=== PATIENT | female | born 1965 | race Caucasian/White ===

== ENCOUNTER 2018-04-05 11:13 | Emergency (ER) | payer MEDICAID, SELFPAY ==
[2018-04-05 11:15] VITALS: BP 142/105; PULSE 113; RESP 18; TEMP 36.8; O2SAT 97; BMI 29.9
[2018-04-05] MEDS: Ketorolac 60 MG/2 ML Vial IM (11:46)
[2018-04-05] MEDS: Orphenadrine 60 MG/2 ML Ampul IM (11:47)
--- NOTE | 2018-04-05 12:03 | ED.VISSUMM ---
- ER Visit Summary Date of Service: 04/05/18 Chief Complaint: Back pain History of Present Illness: The patient is a 52 F with low back pain. The symptoms started 2 days ago. It was worse after lifting and doing some cleaning. Pain is in the left lower back. She has trouble getting comfortable. She is taking gabapentin for hip pain but nothing seems to help with her back. She has a history of hypertension and neuropathy. Denies any abdominal pain, masses, GI symptoms, symptoms, or CAMPUS DIRECTOR symptoms. Denies fever. Physical Examination: Blood pressure 142/105. Heart rate 113. Otherwise vitals unremarkable. Afebrile. No acute distress, but does appear uncomfortable. Head and neck grossly unremarkable. Heart tachycardic but regular. Lungs clear. Abdomen soft. Back is tender to palpation of the left lumbar paraspinal muscles. No spinal tenderness. No CVA tenderness. Straight leg raise negative. Strength, sensation, pulses all normal distally and symmetric bilaterally. Skin appears normal. Test Results: None indicated Emergency Department Course and Treatment: Patient treated with Toradol and Norflex. I believe this is myofascial pain. I believe it will require some time to recover. There is no indication for imaging or admission. Patient will be prescribed anti-inflammatories and muscle relaxers. Continue taking gabapentin. Return for any new or worsening conditions. Treatment Plan: As above Disposition: Discharged Impression: 1. Lumbar back pain This note was generated with [employer] dictation software. It may contain incorrect words, spelling, and punctuation that were not noted in review of the chart prior to signing ED Disposition - Plan for ED Patient: Chief Complaint: Back Referrals: Martin Cantu DO [Primary Care Provider] -
--- NOTE | 2018-04-05 12:06 | ED.DCSUM_ITS ---
- ER Visit Summary Date of Service: 04/05/18 Chief Complaint: Back pain History of Present Illness: The patient is a 52 F with low back pain. The symptoms started 2 days ago. It was worse after lifting and doing some cleaning. Pain is in the left lower back. She has trouble getting comfortable. She is taking gabapentin for hip pain but nothing seems to help with her back. She has a history of hypertension and neuropathy. Denies any abdominal pain, masses, GI symptoms, symptoms, or YOUTH NUTRITIONAL MONITOR symptoms. Denies fever. Physical Examination: Blood pressure 142/105. Heart rate 113. Otherwise vitals unremarkable. Afebrile. No acute distress, but does appear uncomfortable. Head and neck grossly unremarkable. Heart tachycardic but regular. Lungs clear. Abdomen soft. Back is tender to palpation of the left lumbar paraspinal muscles. No spinal tenderness. No CVA tenderness. Straight leg raise negative. Strength, sensation, pulses all normal distally and symmetric bilaterally. Skin appears normal. Test Results: None indicated Emergency Department Course and Treatment: Patient treated with Toradol and Norflex. I believe this is myofascial pain. I believe it will require some time to recover. There is no indication for imaging or admission. Patient will be prescribed anti-inflammatories and muscle relaxers. Continue taking gabapentin. Return for any new or worsening conditions. Treatment Plan: As above Disposition: Discharged Impression: 1. Lumbar back pain This note was generated with [employer] dictation software. It may contain incorrect words, spelling, and punctuation that were not noted in review of the chart prior to signing ED Disposition - Plan for ED Patient: Chief Complaint: Back Referrals: Martin Cantu DO [Primary Care Provider] -
--- NOTE | 2018-04-05 12:06 | ED.DEP ---
ED Disposition - Plan for ED Patient: Chief Complaint: Back Instructions: ED Spasm Back No Trauma Prescriptions: Ibuprofen [Motrin] 800 mg PO TID PRN PRN #20 tab PRN Reason: Pain Cyclobenzaprine [Flexeril] 10 mg PO TID PRN #20 tab PRN Reason: Muscle Spasm Referrals: Martin Cantu DO [Primary Care Provider] -
[2018-04-05 12:19] VITALS: BP 142/105; PULSE 104; RESP 17; O2SAT 98
== END 2018-04-05 12:20 | disposition home or self-care (01) ==
PROVIDERS: Emergency Provider Emergency Medicine; Family Provider Student in an Organized Health Care Education/Training Program; PCP Student in an Organized Health Care Education/Training Program
DX: M54.5 Low back pain (principal); I10 Essential (primary) hypertension; G62.9 Polyneuropathy, unspecified; Z87.891 Personal history of nicotine dependence
CPT/HCPCS: 99282

== ENCOUNTER 2018-09-22 13:54 | Emergency (ER) | payer MEDICAID, SELFPAY ==
[2018-09-22 13:55] VITALS: BP 157/102; PULSE 87; RESP 16; TEMP 36.1; O2SAT 98; BMI 27.3
[2018-09-22 15:07] LABS: Absolute Lymphocyte Count 2.34 X10^3/ul (0.83-4.51); Absolute Neutrophil Count 3.3 X10^3/uL (2.0-7.7); Basophil# 0.03 X10^3/uL; Basophil% 0.5 % (0-1); Eosinophils% 3.3 % (0-5); Hematocrit 41.7 % (37-47); Hemoglobin 13.9 g/dl (12.0-15.0); Lymphocyte # 2.34 X10^3/ul (4.0); Lymphocyte % 38.1 % (19-41); Mean Corp Hgb Conc 33.3 g/gl (32-36); Mean Corpuscular Volume 89.9 fL (81-99); Mean Platelet Vol. 11.6 fl (6.2-12.0); Monocyte# 0.28 X10^3/uL; Monocyte% 4.6 % (0-10); Neutrophil # 3.29 X10^3/uL (2.7-7.7); Neutrophil % 53.5 % (47-70); Platelet Count 179 K/mm3 (150-450); RBC Distribution Width CV 13.1 % (11.6-14.6); RBC Distribution Width SD 42.8 fl (35.1-43.9); Red Blood Count 4.64 M/mm3 (4.2-5.4); White Blood Count 6.1 K/mm3 (4.4-11.0)
[2018-09-22 15:18] LABS: Anion Gap 7 (5-15); BUN 33 mg/dL (7-18); BUN/Creat Ratio 39.7 RATIO (10-20); Calcium,Total 8.5 mg/dL (8.5-10.1); Chloride 111 mmol/L (98-107); Creatinine, Serum 0.83 mg/dL (0.55-1.02); EST Glomerular Filtration Rate 76 mL/min (>60); Est Glom Filt Rate - Afr Amer 92 mL/min (>60); Estimated Creatinine Clearance 79.07 ml/min; Glucose 88 mg/dL (74-106); Potassium 3.5 mmol/L (3.5-5.1); Sodium Level 143 mmol/L (136-145)
[2018-09-22 15:25] LABS: CPK Total, Creatine Kinase 119 U/L (26-192)
[2018-09-22 15:31] LABS: POSITIVE COUNT NO; POSITIVE DIFFERENTIAL NO; POSITIVE MORPHOLOGY NO
--- NOTE | 2018-09-22 15:49 | ED.VISSUMM ---
- ER Visit Summary Date of Service: 09/22/18 Chief Complaint: [Bilateral leg pain History of Present Illness: The patient is a 53 F [presents to the emergency department with bilateral leg pain that started last night. Patient describes a burning sensation to the anterior aspect of both thighs and lower extremities. Patient denies any numbness or tingling or weakness in extremities. She denies any trauma. She denies any back pain. She does have a history of neuropathy but is never had pain like this before. She denies any rashes. Denies any new medications. Patient currently on gabapentin and meloxicam.] Physical Examination: [HEENT-PERRLA, EOMI. Cranial nerves II through XII grossly intact. TMs clear. Mucous membranes moist. No adenopathy. Cardiovascular-regular rate and rhythm without murmur or ectopy Lungs-clear to auscultation, chest wall stable without crepitus or subcu emphysema Abdomen-normoactive bowel sounds, soft, nontender, no rebound or rigidity, no peritoneal signs. Back exam-patient has no tenderness over the lumbar spine. There is no erythema or warmth. Extremities-intact ?4, normal range of motion, normal pulses, atraumatic. Patient has mild tenderness to the anterior thighs bilaterally as well as the anterior tibial regions bilaterally. There is no erythema or warmth noted. Patient has normal femoral, popliteal, dorsal pedal, and we will see her tibial pulses. Cap refill less than 3 seconds. Normal range of motion. Normal strength.] Test Results: [CBC with differential obtained was normal. Chemistries were normal. Sed rate was 13. CPK was 110.] Emergency Department Course and Treatment: [Patient was driving so she denies any pain medicine in the emergency department.] Treatment Plan: [Patient to follow-up with her primary care physician within next 5-7 days. Patient given a prescription for [place] for pain.] Disposition: [Discharged home in stable condition] Impression: [Bilateral leg pain-etiology uncertain] This note was generated with [employer] dictation software. It may contain incorrect words, spelling, and punctuation that were not noted in review of the chart prior to signing ED Disposition - Plan for ED Patient: Chief Complaint: Lower Extremity Injury Referrals: Martin Cantu DO [Primary Care Provider] -
--- NOTE | 2018-09-22 15:53 | ED.DEP ---
ED Disposition - Plan for ED Patient: Chief Complaint: Lower Extremity Injury Prescriptions: Hydrocodone Bitart/Apap 5-325 [[place] 5MG-325MG] 1 tab PO Q4H PRN PRN 2 Days #10 tab PRN Reason: Pain Referrals: Martin Cantu DO [Primary Care Provider] - 5-7 Days Additional Instructions: Reason for your leg pain is unclear
--- NOTE | 2018-09-22 15:56 | DCINST.ED_ITS ---
ED Disposition - Plan for ED Patient: Chief Complaint: Lower Extremity Injury Prescriptions: Hydrocodone Bitart/Apap 5-325 [[place] 5MG-325MG] 1 tab PO Q4H PRN PRN 2 Days #10 tab PRN Reason: Pain Referrals: Martin Cantu DO [Primary Care Provider] - 5-7 Days Additional Instructions: Reason for your leg pain is unclear
--- NOTE | 2018-09-22 16:07 | ED.RN ---
DISCHARGE INSTRUCTIONS GIVEN TO AND REVIEWED WITH PATIENT, PATIENT DENIES QUESTIONS OR CONCERNS AND VOICES UNDERSTANDING OF DISCHARGE INSTRUCTIONS. PT AMBULATES OUT OF ROOM WITHOUT ISSUE.
[2018-09-23 07:58] LABS: Erythrocyte Sedimentation Rate 17 mm/hr (0-30)
== END 2018-09-22 16:08 | disposition home or self-care (01) ==
LOC: ED 14:51
PROVIDERS: Emergency Provider Emergency Medicine; Family Provider Student in an Organized Health Care Education/Training Program; PCP Student in an Organized Health Care Education/Training Program
DX: M79.605 Pain in left leg (principal); M79.604 Pain in right leg; Z72.0 Tobacco use
CPT/HCPCS: 36415; 80048; 82550; 85025; 85652; 99282

== ENCOUNTER 2018-11-25 13:54 | Observation (INO) | payer MEDICAID, SELFPAY ==
[2018-11-25] VITALS (11 sets, daily range): BP systolic 168–196; BP diastolic 75–133; PULSE 62–88; RESP 13–18; TEMP 36.3–37.1; O2SAT 95–100; BMI 29.3; BMI 28.6; BMI 28.7
--- NOTE | 2018-11-25 13:56 | NURSING ---
NO OLD EKG
--- NOTE | 2018-11-25 15:18 | EKG12_ITS ---
Test Reason : HTN/RHYTHM CHANGES Blood Pressure : / mmHG Vent. Rate : 066 BPM Atrial Rate : 066 BPM P-R Int : 196 ms QRS Dur : 094 ms QT Int : 412 ms P-R-T Axes : 065 063 080 degrees QTc Int : 431 ms Normal sinus rhythm Normal ECG Confirmed by FAVIAN PATEL, JAMIA ([id number]), staff editor NHAN PAZ ([id number]) on 11/28/2018 1:51:14 PM Referred By: TANYA Confirmed By:JAMIA BALLESTEROS MD
--- NOTE | 2018-11-25 15:18 | CT_ITS ---
STUDY: CT BRAIN WITHOUT CONTRAST REASON FOR EXAM: Female, 53 years old. Left arm weakness RADIATION DOSAGE (If Supplied By Facility): CTDIvol = ( 44.99 ) mGy, DLP = ( 745.49 ) mGycm TECHNIQUE: Transaxial CT imaging of the brain was performed without administration of intravenous contrast material. Individualized dose optimization techniques were used for this CT. COMPARISON: No relevant priors. FINDINGS: Normal soft tissue structures. Normal calvarium. Normal size ventricles and extra-axial spaces for the patient's age. There are mild areas of decreased attenuation within the white matter tracts of the supratentorial brain, consistent with microvascular disease changes. Normal basal ganglia and thalami. Normal brainstem. Normal cerebellum. There is no intracranial hemorrhage. There are no findings of an acute ischemic infarction. There is mucosal thickening in the sphenoid sinus. CT/Brain/Head without Contrast IMPRESSION: Chronic involutional changes of the brain. No hemorrhage. Electronically Signed: Larry Madera MD at 15:57 EDT , Service support ,
--- NOTE | 2018-11-25 15:19 | ED.VISSUMM ---
- ER Visit Summary Date of Service: 11/25/18 Chief Complaint: Blood pressure History of Present Illness: The patient is a 53 F history of hypertension and bilateral neuropathy of the feet. Patient was in her primary care office today for follow-up for elevated blood pressure. Pressure was high and she was sent in the ER. States she has had some intermittent headaches recently. One time she had stuttering speech. She denies any history of prior stroke or TIA. She is not on blood thinners. She denies any recent head trauma. Physical Examination: Blood pressure 160/133. Otherwise vital signs stable and afebrile. HEENT exam left-sided facial droop. Slow deliberate speech. Pupils round reactive light. No signs of trauma to her face or scalp. Neck nontender. Lungs clear to auscultation bilaterally. Heart regular rhythm rate about 65 no murmur. Chest wall nontender. Abdomen soft nontender. Patient is moving all 4 extremities. She seems to display weakness of her right arm and leg. The tester food products strength of the right hand is definitely significantly less than the left and she is right-hand dominant. No edema. Neurologically she has slightly slurred speech. Left facial droop. And weakness to her right arm and leg specifically tester food products strength and lifting her right leg. NIH score equals 4. Test Results: See normal. White count of 6 hemoglobin 14. Chemistries normal normal creatinine and gap. Troponin normal. EKG sinus rhythm rate of 66 no acute abnormality. Chest x-ray portable one view shows no acute abnormality read both myself and radiologist. CT of the brain shows chronic changes no acute process. Emergency Department Course and Treatment: Patient undergo a stroke workup. Repeat exam patient is doing well. Unchanged. She still has mildly slurred speech, left facial droop, right hand weakness compared to the left and right leg weakness compared to the right. Her NIH at most would be a 4. Some of this has been going on like the right hand weakness during the patient's. She is never had a workup. This could be secondary to a problem with her neck or pinched nerve. However that would explain the left facial droop and no weakness in the right leg. Treatment Plan: Speak to the hospitalist about admission. She does not meet any TPA criteria. Her current blood pressure is 179/88 at approximately 1628 PM Disposition: Admission Impression: Acute on chronic hypertension Right-sided weakness with left facial droop This note was generated with [employer] dictation software. It may contain incorrect words, spelling, and punctuation that were not noted in review of the chart prior to signing ED Disposition - Plan for ED Patient: Referrals: Martin Cantu DO [Primary Care Provider] -
--- NOTE | 2018-11-25 15:22 | ED.DCSUM_ITS ---
- ER Visit Summary Date of Service: 11/25/18 Chief Complaint: Blood pressure History of Present Illness: The patient is a 53 F history of hypertension and bilateral neuropathy of the feet. Patient was in her primary care office today for follow-up for elevated blood pressure. Pressure was high and she was sent in the ER. States she has had some intermittent headaches recently. One time she had stuttering speech. She denies any history of prior stroke or TIA. She is not on blood thinners. She denies any recent head trauma. Physical Examination: Blood pressure 160/133. Otherwise vital signs stable and afebrile. HEENT exam left-sided facial droop. Slow deliberate speech. Pupils round reactive light. No signs of trauma to her face or scalp. Neck nontender. Lungs clear to auscultation bilaterally. Heart regular rhythm rate about 65 no murmur. Chest wall nontender. Abdomen soft nontender. Patient is moving all 4 extremities. She seems to display weakness of her right arm and leg. The reagent tender strength of the right hand is definitely significantly less than the left and she is right-hand dominant. No edema. Neurologically she has slightly slurred speech. Left facial droop. And weakness to her right arm and leg specifically reagent tender strength and lifting her right leg. NIH score equals 4. Test Results: See normal. White count of 6 hemoglobin 14. Chemistries normal normal creatinine and gap. Troponin normal. EKG sinus rhythm rate of 66 no acute abnormality. Chest x-ray portable one view shows no acute abnormality read both myself and radiologist. CT of the brain shows chronic changes no acute process. Emergency Department Course and Treatment: Patient undergo a stroke workup. Repeat exam patient is doing well. Unchanged. She still has mildly slurred speech, left facial droop, right hand weakness compared to the left and right leg weakness compared to the right. Her NIH at most would be a 4. Some of this has been going on like the right hand weakness during the patient's. She is never had a workup. This could be secondary to a problem with her neck or pinched nerve. However that would explain the left facial droop and no weakness in the right leg. Treatment Plan: Speak to the hospitalist about admission. She does not meet any TPA criteria. Her current blood pressure is 179/88 at approximately 1628 PM Disposition: Admission Impression: Acute on chronic hypertension Right-sided weakness with left facial droop This note was generated with [employer] dictation software. It may contain incorrect words, spelling, and punctuation that were not noted in review of the chart prior to signing ED Disposition - Plan for ED Patient: Referrals: Martin Cantu DO [Primary Care Provider] -
--- NOTE | 2018-11-25 15:35 | RAD_ITS ---
STUDY: X-RAY CHEST REASON FOR EXAM: Female, 53 years old. CVA workup. TECHNIQUE: Single AP portable view of the chest. COMPARISON: None. FINDINGS: The lungs are clear and expanded. There is no demonstrated pleural abnormality. Normal size heart. Normal mediastinum and devon. Normal visualized pulmonary arteries. Normal visualized aortic arch and descending thoracic aorta. Normal visualized thoracic spine. Normal visualized ribs, clavicles, and shoulders. There is no demonstrated abnormality of the visualized soft tissue structures of the upper abdomen. RAD/Chest 1 View IMPRESSION: Normal x-ray examination of the chest. Electronically Signed: Morenita Cesar MD at 16:00 EDT , Service support ,
[2018-11-25 15:41] LABS: Bedside Glucose 86 mg/dL (70-110)
[2018-11-25 15:47] LABS: Absolute Lymphocyte Count 2.56 X10^3/ul (0.83-4.51); Absolute Neutrophil Count 3.5 X10^3/uL (2.0-7.7); Basophil# 0.04 X10^3/uL; Basophil% 0.6 % (0-1); Eosinophils% 2.9 % (0-5); Hematocrit 42.7 % (37-47); Hemoglobin 14.5 g/dl (12.0-15.0); Lymphocyte # 2.56 X10^3/ul (4.0); Lymphocyte % 36.9 % (19-41); Mean Corpuscular Hgb 30.2 pg (27.0-32.0); Mean Platelet Vol. 12.5 fl (6.2-12.0); Monocyte# 0.64 X10^3/uL; Monocyte% 9.2 % (0-10); Neutrophil # 3.48 X10^3/uL (2.7-7.7); Neutrophil % 50.3 % (47-70); POSITIVE COUNT NO; POSITIVE DIFFERENTIAL NO; POSITIVE MORPHOLOGY NO; Platelet Count 238 K/mm3 (150-450); RBC Distribution Width CV 13.3 % (11.6-14.6); RBC Distribution Width SD 43.1 fl (35.1-43.9); White Blood Count 6.9 K/mm3 (4.4-11.0)
[2018-11-25 15:59] LABS: Anion Gap 4 (5-15); BUN 28 mg/dL (7-18); BUN/Creat Ratio 27.2 RATIO (10-20); Calcium,Total 8.9 mg/dL (8.5-10.1); Chloride 108 mmol/L (98-107); Creatinine, Serum 1.03 mg/dL (0.55-1.02); EST Glomerular Filtration Rate 59 mL/min (>60); Est Glom Filt Rate - Afr Amer 72 mL/min (>60); Estimated Creatinine Clearance 63.72 ml/min; Glucose 89 mg/dL (74-106); Potassium 4.5 mmol/L (3.5-5.1); Sodium Level 139 mmol/L (136-145)
[2018-11-25 16:45] LABS: Partial Thromboplast Time 43.5 Seconds (24.1-36.2)
--- NOTE | 2018-11-25 17:03 | PCM.HP.STD ---
Problem List (1) CVA (cerebral vascular accident) Status: Acute Qualifiers: CVA mechanism: unspecified Qualified Code(s): I63.9 - Cerebral infarction, unspecified (2) Hypertensive urgency Status: Acute History of Present Illness Date of Admission: 11/25/18 Chief Complaint: right sided weakness. The patient is a 53 year old F presents with a few day history of right-sided weakness. Presented to her PCPs office and had very high blood pressures instructed to the emergency room. Patient had a CAT scan was unremarkable but was noted to have right-sided weakness as well as left facial droop. The hospitalist service was contacted for patient for further stroke workup. Patient is never had a stroke before. Patient does complain of some pain in her right upper extremity and some paresthesias in her fingers. [] Past Medical History Medical History: Medical History (Last Updated 11/25/18 @ 17:04 by Mikel Rasheed DO) HTN (hypertension) I10 Allergies Latex, Natural Rubber Allergy (Verified 11/25/18 14:01) Rash Home Medications: Ambulatory Orders Medication Instructions Recorded Metoprolol Tartrate [Lopressor 75 mg PO BID 03/02/16 (Beta Felicity)] Cetirizine HCl [Zyrtec] 10 mg PO DAILY 11/25/18 Gabapentin 600 mg PO TID 11/25/18 Losartan Potassium [Cozaar] 50 mg PO BID 11/25/18 Meloxicam 15 mg PO DAILY 11/25/18 Nystatin/Triamcin Cream [Mycolog] 1 applic TOPICAL BID 11/25/18 Venlafaxine HCl [Effexor Xr] 75 mg PO DAILY 11/25/18 Smoking Status: Heavy Smoker (>10/day) Tobacco Use: Cigarettes Alcohol: None Drugs: None - *Family History Maternal Family History: Family History (Last Updated 11/25/18 @ 17:04 by Mikel Rasheed DO) Other CVA (cerebral vascular accident) Review of Systems Constitutional: Denies: Anorexia, Chills, Fever, Night Sweats Eyes: Reports: - - glasses. Denies: Blurred vision, Double vision HEENT: Reports: Head Aches. Denies: Sinus Congestion, Sinus Drainage Cardiovascular: Reports: Palpitations. Denies: Chest Pain Respiratory: Denies: Cough, Shortness of breath at rest, Sputum production Gastrointestinal: Denies: Abdominal Pain, Nausea, Vomiting Genitourinary: Denies: Dysuria Musculoskeletal: Reports: Arm Pain. Denies: Leg Pain Skin: Denies: Rash, Wounds Neurological: Reports: Balance problems, Numbness, Tingling. Denies: Blurred vision, Double vision Psychiatric: Denies: Anxiety, Depression Endocrine: Denies: Change in Body Habitus, Heat/ Cold Intolerance Hematologic/ Lymphatic: Denies: Easy Bruising, Easy Bleeding, Hx of blood clot Comment: A 10 point review of systems were negative except as mentioned in the history of present illness and the other review of systems. VTE Information - Inpt Only VTE Present on Admission: No VTE Pharm Prophylaxis ordered?: Yes Patient Problems: Active and Suspected Problems CVA (cerebral vascular accident) (Acute) Hypertensive urgency (Acute) - Physical Exam General: Alert, Cooperative, No apparent distress HEENT: Atraumatic, PERRLA, EOMI, Normocephalic Oral: Moist Mucosa, No Gingival or Mucosal Lesions/ Ulcerations Neck: No Nodes, Thyroid Normal Size and Texture Lungs: Clear to auscultation, Normal air movement, No rhonchi, No wheeze Cardiovascular: Regular rate, Regular Rhythm, Normal S1, Normal S2, No murmurs Abdomen: Bowel Sounds Present, Soft, Non Tender, Non-Distended, No Hepato-splenomegaly Extremities: No edema, No Calf Tenderness Skin: No rashes, No breakdown Musculoskeletal: No Tenderness to Palpation of Joints or Extremities, No Muscle Wasting Neurological: Cranial nerves II-XII grossly intact - Set for a slight left facial droop, Motor Exam 5/5 strength throughout - Except 4 out of 5 in the right upper and right lower extremity Psych/Mental Status: Normal Affect, Appropriate Vital Signs Temp Pulse Resp BP Pulse Ox 36.3 C L 68 14 179/96 H 98 11/25/18 13:55 11/25/18 16:30 11/25/18 16:30 11/25/18 16:30 11/25/18 16:30 Oxygen Delivery Method Room Air Weight: 87.543 kg Body Mass Index (BMI) 29.3 Finger Stick Blood Glucose 86 Laboratory Tests Past 24 Hrs 11/25/18 11/25/18 11/25/18 14:04 14:04 14:04 WBC 6.9 RBC 4.80 Hgb 14.5 Hct 42.7 MCV 89.0 MCH 30.2 MCHC 34.0 RDW 13.3 RDW Differential 43.1 Plt Count 238 MPV 12.5 H Immature Gran % (Auto) 0.100 Neut % (Auto) 50.3 Lymph % (Auto) 36.9 [place] % (Auto) 9.2 Eos % (Auto) 2.9 Baso % (Auto) 0.6 Absolute Neuts (auto) 3.5 Absolute Lymphs (auto) 2.56 Total Counted Not Reportable PT Cancelled INR Cancelled APTT Cancelled Sodium 139 Potassium 4.5 Chloride 108 H Carbon Dioxide 27.0 Anion Gap 4 L BUN 28 H Creatinine 1.03 H Estim Creat Clear Calc 63.72 Est GFR (MDRD) Af Amer 72 Est GFR (MDRD) Non-Af 59 L BUN/Creatinine Ratio 27.2 H Glucose 89 Calcium 8.9 Troponin I < 0.015 11/25/18 15:42 WBC RBC Hgb Hct MCV MCH MCHC RDW RDW Differential Plt Count MPV Immature Gran % (Auto) Neut % (Auto) Lymph % (Auto) [place] % (Auto) Eos % (Auto) Baso % (Auto) Absolute Neuts (auto) Absolute Lymphs (auto) Total Counted PT 13.0 INR 1.0 APTT 43.5 H Sodium Potassium Chloride Carbon Dioxide Anion Gap BUN Creatinine Estim Creat Clear Calc Est GFR (MDRD) Af Amer Est GFR (MDRD) Non-Af BUN/Creatinine Ratio Glucose Calcium Troponin I POC Glucose 11/25/18 15:23 POC Glucose 86 EKG reviewed and showed normal sinus rhythm, LVH and inferior Q waves. Clinical Impression(s) from Imaging Studies Brain CT 11/25/18 15:18 IMPRESSION: Chronic involutional changes of the brain. No hemorrhage. Electronically Signed: Larry Madera MD at 15:57 EDT , Service support , Chest X-Ray 11/25/18 15:35 IMPRESSION: Normal x-ray examination of the chest. Electronically Signed: Morenita Cesar MD at 16:00 EDT , Service support , Assessment/Plan All Active Problems CVA (cerebral vascular accident) (Acute) Hypertensive urgency (Acute) 1. Suspected stroke Presentation is atypical patient is having right upper and lower extremity weakness as well as left facial droop Patient does have risk factors in regards to her hypertension as well as tobacco use Patient will undergo a stroke workup, with an MRI of the brain, MRA of the head and neck, echocardiogram, physical and occupational therapy and neurology consultation Start patient on aspirin and high intensity statin Not a candidate for TPA as symptoms began days prior 2. Hypertensive urgency Improved As needed hydralazine 3. DVT prophylaxis with Lovenox Code Visit Inpatient E&M: 44571 Init Hosp L3
--- NOTE | 2018-11-25 17:08 | HP.PCM_ITS ---
Problem List (1) CVA (cerebral vascular accident) Status: Acute Qualifiers: CVA mechanism: unspecified Qualified Code(s): I63.9 - Cerebral infarction, unspecified (2) Hypertensive urgency Status: Acute History of Present Illness Date of Admission: 11/25/18 Chief Complaint: right sided weakness. The patient is a 53 year old F presents with a few day history of right-sided weakness. Presented to her PCPs office and had very high blood pressures instructed to the emergency room. Patient had a CAT scan was unremarkable but was noted to have right-sided weakness as well as left facial droop. The hospitalist service was contacted for patient for further stroke workup. Patient is never had a stroke before. Patient does complain of some pain in her right upper extremity and some paresthesias in her fingers. [] Past Medical History Medical History: Medical History (Last Updated 11/25/18 @ 17:04 by Mikel Rasheed DO) HTN (hypertension) I10 Allergies Latex, Natural Rubber Allergy (Verified 11/25/18 14:01) Rash Home Medications: Ambulatory Orders Medication Instructions Recorded Metoprolol Tartrate [Lopressor 75 mg PO BID 03/02/16 (Beta Felicity)] Cetirizine HCl [Zyrtec] 10 mg PO DAILY 11/25/18 Gabapentin 600 mg PO TID 11/25/18 Losartan Potassium [Cozaar] 50 mg PO BID 11/25/18 Meloxicam 15 mg PO DAILY 11/25/18 Nystatin/Triamcin Cream [Mycolog] 1 applic TOPICAL BID 11/25/18 Venlafaxine HCl [Effexor Xr] 75 mg PO DAILY 11/25/18 Smoking Status: Heavy Smoker (>10/day) Tobacco Use: Cigarettes Alcohol: None Drugs: None - *Family History Maternal Family History: Family History (Last Updated 11/25/18 @ 17:04 by Mikel Rasheed DO) Other CVA (cerebral vascular accident) Review of Systems Constitutional: Denies: Anorexia, Chills, Fever, Night Sweats Eyes: Reports: - - glasses. Denies: Blurred vision, Double vision HEENT: Reports: Head Aches. Denies: Sinus Congestion, Sinus Drainage Cardiovascular: Reports: Palpitations. Denies: Chest Pain Respiratory: Denies: Cough, Shortness of breath at rest, Sputum production Gastrointestinal: Denies: Abdominal Pain, Nausea, Vomiting Genitourinary: Denies: Dysuria Musculoskeletal: Reports: Arm Pain. Denies: Leg Pain Skin: Denies: Rash, Wounds Neurological: Reports: Balance problems, Numbness, Tingling. Denies: Blurred vision, Double vision Psychiatric: Denies: Anxiety, Depression Endocrine: Denies: Change in Body Habitus, Heat/ Cold Intolerance Hematologic/ Lymphatic: Denies: Easy Bruising, Easy Bleeding, Hx of blood clot Comment: A 10 point review of systems were negative except as mentioned in the history of present illness and the other review of systems. VTE Information - Inpt Only VTE Present on Admission: No VTE Pharm Prophylaxis ordered?: Yes Patient Problems: Active and Suspected Problems CVA (cerebral vascular accident) (Acute) Hypertensive urgency (Acute) - Physical Exam General: Alert, Cooperative, No apparent distress HEENT: Atraumatic, PERRLA, EOMI, Normocephalic Oral: Moist Mucosa, No Gingival or Mucosal Lesions/ Ulcerations Neck: No Nodes, Thyroid Normal Size and Texture Lungs: Clear to auscultation, Normal air movement, No rhonchi, No wheeze Cardiovascular: Regular rate, Regular Rhythm, Normal S1, Normal S2, No murmurs Abdomen: Bowel Sounds Present, Soft, Non Tender, Non-Distended, No Hepato- splenomegaly Extremities: No edema, No Calf Tenderness Skin: No rashes, No breakdown Musculoskeletal: No Tenderness to Palpation of Joints or Extremities, No Muscle Wasting Neurological: Cranial nerves II-XII grossly intact - Set for a slight left facial droop, Motor Exam 5/5 strength throughout - Except 4 out of 5 in the right upper and right lower extremity Psych/Mental Status: Normal Affect, Appropriate Vital Signs Temp Pulse Resp BP Pulse Ox 36.3 C L 68 14 179/96 H 98 11/25/18 13:55 11/25/18 16:30 11/25/18 16:30 11/25/18 16:30 11/25/18 16:30 Oxygen Delivery Method Room Air Weight: 87.543 kg Body Mass Index (BMI) 29.3 Finger Stick Blood Glucose 86 Laboratory Tests Past 24 Hrs 11/25/18 11/25/18 11/25/18 14:04 14:04 14:04 WBC 6.9 RBC 4.80 Hgb 14.5 Hct 42.7 MCV 89.0 MCH 30.2 MCHC 34.0 RDW 13.3 RDW Differential 43.1 Plt Count 238 MPV 12.5 H Immature Gran % (Auto) 0.100 Neut % (Auto) 50.3 Lymph % (Auto) 36.9 [place] % (Auto) 9.2 Eos % (Auto) 2.9 Baso % (Auto) 0.6 Absolute Neuts (auto) 3.5 Absolute Lymphs (auto) 2.56 Total Counted Not Reportable PT Cancelled INR Cancelled APTT Cancelled Sodium 139 Potassium 4.5 Chloride 108 H Carbon Dioxide 27.0 Anion Gap 4 L BUN 28 H Creatinine 1.03 H Estim Creat Clear Calc 63.72 Est GFR (MDRD) Af Amer 72 Est GFR (MDRD) Non-Af 59 L BUN/Creatinine Ratio 27.2 H Glucose 89 Calcium 8.9 Troponin I < 0.015 11/25/18 15:42 WBC RBC Hgb Hct MCV MCH MCHC RDW RDW Differential Plt Count MPV Immature Gran % (Auto) Neut % (Auto) Lymph % (Auto) [place] % (Auto) Eos % (Auto) Baso % (Auto) Absolute Neuts (auto) Absolute Lymphs (auto) Total Counted PT 13.0 INR 1.0 APTT 43.5 H Sodium Potassium Chloride Carbon Dioxide Anion Gap BUN Creatinine Estim Creat Clear Calc Est GFR (MDRD) Af Amer Est GFR (MDRD) Non-Af BUN/Creatinine Ratio Glucose Calcium Troponin I POC Glucose 11/25/18 15:23 POC Glucose 86 EKG reviewed and showed normal sinus rhythm, LVH and inferior Q waves. Clinical Impression(s) from Imaging Studies Brain CT 11/25/18 15:18 IMPRESSION: Chronic involutional changes of the brain. No hemorrhage. Electronically Signed: Larry Madera MD at 15:57 EDT , Service support , Chest X-Ray 11/25/18 15:35 IMPRESSION: Normal x-ray examination of the chest. Electronically Signed: Morenita Cesar MD at 16:00 EDT , Service support , Assessment/Plan All Active Problems CVA (cerebral vascular accident) (Acute) Hypertensive urgency (Acute) 1. Suspected stroke * Presentation is atypical patient is having right upper and lower extremity [place] as well as left facial droop * Patient does have risk factors in regards to her hypertension as well as tobacco use * Patient will undergo a stroke workup, with an MRI of the brain, MRA of the hea d and neck, echocardiogram, physical and occupational therapy and neurology consultation * Start patient on aspirin and high intensity statin * Not a candidate for TPA as symptoms began days prior 2. Hypertensive urgency * Improved * As needed hydralazine 3. DVT prophylaxis with Lovenox Code Visit Inpatient E&M: 06613 Init Hosp L3
--- NOTE | 2018-11-25 17:22 | MRI_ITS ---
STUDY: MRA OF THE HEAD WITHOUT CONTRAST REASON FOR EXAM: Female, 53 years old. Pt has N/T RIGHT arm, H/A, HTN, generalized weakness TECHNIQUE: 3-D [id number] (TOF) imaging was performed with MIPs. The study was performed unenhanced. COMPARISON: None. FINDINGS: Normal bilateral petrous carotid arteries. Normal right cavernous carotid artery with a normal supraclinoid bifurcation. Normal left cavernous carotid artery with a normal supraclinoid bifurcation. Normal right A1 segments of the anterior cerebral artery. Normal left A1 segments of the anterior cerebral artery. Normal intact anterior communicating artery (ACOM). Normal bilateral A2 segments of the anterior cerebral arteries. Normal right M1 and M2 segments of the middle cerebral arteries, with a normal M1 bifurcation. Normal left M1 and M2 segments of the middle cerebral arteries, with a normal M1 bifurcation. There is a persistent origin of the right posterior cerebral artery with absence of the P1 segment of the right posterior cerebral artery. There is a persistent origin of the left posterior cerebral artery with absence of the P1 segment of the left posterior cerebral artery. Normal bilateral vertebral arteries. Normal basilar artery with a normal basilar bifurcation. The visualized bilateral superior cerebellar (SCA) arteries are normal. Normal bilateral P1, P2 and visualized P3 segments of the posterior cerebral arteries. There is no demonstrated aneurysm of the [place]. There is no major vessel occlusion or hemodynamically significant stenosis. There is no demonstrated abnormality of the visualized brain. MRI/MRA Head ONLY without Contrast IMPRESSION: Normal MRA of the head Electronically Signed: Crispin Arteaga, at 21:50 EDT Tel , Service support ,
--- NOTE | 2018-11-25 17:22 | MRI_ITS ---
STUDY: MRI BRAIN WITH AND WITHOUT CONTRAST REASON FOR EXAM: Female, 53 years old. Numbness and tingling in the right arm with headache. Patient has generalized weakness. TECHNIQUE: Standardized multiplanar fat and water weighted pulse sequences were obtained. 18 IV Dotarem was administered for the contrast portion of the examination. Multiple images are limited by patient motion. COMPARISON: CT of the head dated November 25, 2018. FINDINGS: There is mild cerebral atrophy with widening of the extra-axial spaces and ventricular dilatation. There are a limited number of small white matter hyperintensities, distributed throughout the deep white matter tracts of the cerebral hemispheres, consistent with mild chronic white matter ischemic changes. There is no evidence for recent intracranial ischemia or other cause of cytotoxic edema on diffusion weighted imaging (DWI). Normal T2* images of the brain without demonstrated susceptibility artifact. There is no demonstrated hemosiderin stain. Normal bilateral basal ganglia. Normal thalami. There is no extra-axial fluid accumulation. Normal flow voids within the major intracranial circulation suggesting patency by spin echo criteria. Normal venous enhancement. There is no enhancing intra-axial or extra-axial abnormality. Normal sella turcica, pituitary gland, infundibular stalk, optic chiasm and hypothalamus. Normal tectal plate and pineal gland. Normal midbrain, shabbir and medulla. Normal cerebellum. There are large basal cisterns. Normal bilateral temporal bones. Normal bilateral internal auditory canals. No demonstrated orbital abnormality, within the constraints of a routine brain study. There is a small mucous retention cyst left maxillary sinus. There is mild mucoperiosteal thickening in the ethmoid sinuses. There is mild deviation of nasal septum towards the left. Normal calvarium and skull base. Normal visualized soft tissue structures. Normal visualized upper cervical spine. MRI/Brain W/WO Contrast IMPRESSION: 1. Involutional changes of the brain, as described above. 2. No MR evidence for acute infarct. Electronically Signed: Melinda Vann MD at 10:13 EDT , Service support ,
--- NOTE | 2018-11-25 17:22 | ECHOD_ITS ---
Reason For Study: TIA/CVA Procedure This was a 2D Doppler, Color Flow transthoracic echocardiogram. The exam was of adequate technical quality. Exam performed portable in patient room. Left Ventricle Normal LV size. Left ventricular systolic function is normal. The estimated ejection fraction is 65 %. Diastolic function is indeterminate. No regional wall motion abnormalities noted. Right Ventricle Normal RV size. Normal systolic function. Atria Normal left atrium. Normal right atrium. Aneurysmal atrial septum. No doppler evidence for ASD. Bubble contrast study negative for right to left interatrial shunt. Mitral Valve There is no mitral annular calcification. Normal mitral valve. Trivial mitral valve insufficiency. Tricuspid Valve Normal tricuspid valve. Trivial tricuspid valve insufficiency. Right ventricular systolic pressure estimated to be 22 mmHg. Aortic Valve Trisinus/trileaflet aortic valve. Normal aortic valve. Pulmonic Valve The pulmonic valve is not well visualized. Great Vessels Normal sized aortic root. Pericardium/Pleural No pericardial effusion. Medication Performed a rapid injection of agitated mix of 9 cc saline and 1cc air to assess for atrial septal defect. MMode/2D Measurements & Calculations LVIDd: 3.5 cm IVSd: 1.2 cm Ao root diam: 2.5 cm LVIDs: 2.4 cm LVPWd: 1.4 cm RVDd: 3.5 cm FS: 32.8 % LAV(MOD-bp): 46.0 ml LVAd ap4: 20.5 cm2 SV(MOD-sp4): 33.5 ml LAV(MOD-bp) Indexed: 23.4 ml/m2 EDV(MOD-sp4): 48.5 ml LAV(MOD-sp2): 50.5 ml EDV(sp4-el): 47.8 ml LAV(MOD-sp4): 42.2 ml LVAs ap4: 10.2 cm2 ESV(MOD-sp4): 15.1 ml ESV(sp4-el): 14.5 ml EF(MOD-sp4): 69.0 % EF(sp4-el): 69.7 % SV(sp4-el): 33.3 ml LA A4 area: 15.9 cm2 LA dimension(2D): 3.5 cm RA A4 area: 11.1 cm2 Doppler Measurements & Calculations MV E max dexter: 85.2 cm/sec Lat Peak E' Dexter: 7.1 cm/sec Med Peak E' Dexter: 5.2 cm/sec MV A max dexter: 84.1 cm/sec E/E' lat: 12.0 E/E' med: 16.5 MV E/A: 1.0 Ao V2 max: 117.8 cm/sec LV V1 max: 103.5 cm/sec PA V2 max: 70.1 cm/sec Ao max P.5 mmHg LV V1 max P.3 mmHg Ao V2 mean: 78.4 cm/sec Ao mean P.7 mmHg Ao V2 VTI: 25.9 cm TR max dexter: 217.8 cm/sec TR max P.0 mmHg Interpretation Summary Left ventricular systolic function is normal. The estimated ejection fraction is 65 %. Aneurysmal atrial septum. Trivial mitral valve insufficiency. Trivial tricuspid valve insufficiency. Right ventricular systolic pressure estimated to be 22 mmHg. Diastolic function is indeterminate. Bubble contrast study negative for right to left interatrial shunt. Ordering Physician: Mikel Rasheed Referring Physician: Maritn Kang Performed By: Maddie Amin, MIKAELA, RVT
--- NOTE | 2018-11-25 17:22 | MRI_ITS ---
STUDY: MRA NECK WITH AND WITHOUT CONTRAST REASON FOR EXAM: Female, 53 years old. N/T RIGHT arm, H/A, HTN, generalized weakness TECHNIQUE: 3-D [id number]-[id number] (TOF) imaging was performed in an 1.5 T MRI scanner. 18 IV Dotarem was administered for the contrast enhanced images. COMPARISON: None. FINDINGS: RIGHT CAROTID ARTERIES: Normal right common carotid artery (CCA). Normal right common carotid bulb. Normal origin of the right internal carotid (ICA) artery without a hemodynamically significant stenosis. Normal visualized cervical portion of the right internal carotid artery. Normal origin of the right external carotid artery (ECA). LEFT CAROTID ARTERIES: Normal left common carotid artery (CCA). Normal left common carotid bulb. Normal origin of the left internal carotid (ICA) artery without a hemodynamically significant stenosis. Normal visualized cervical portion of the left internal carotid artery. Normal origin of the left external carotid artery (ECA). VERTEBRAL ARTERIES: There is antegrade flow within the bilateral vertebral arteries with a small left vertebral artery, and a dominant right vertebral artery. MRI/MRA Neck WITH and W/O Contrast IMPRESSION: Normal bilateral cervical carotid and vertebral arteries. Electronically Signed: Crispin Arteaga, at 23:52 EDT Tel , Service support ,
[2018-11-25] MEDS: Acetaminophen 325 MG Tablet 650 MG PO (18:11)
[2018-11-25] MEDS: Aspirin 325 MG Tablet PO (18:11)
[2018-11-25] MEDS: Losartan Potassium 50 MG Tablet PO (22:09)
[2018-11-25] MEDS: Atorvastatin Calcium 80 MG Tablet PO (22:09)
[2018-11-25] MEDS: Gabapentin 600 MG Tablet PO (22:09)
[2018-11-25] MEDS: Nystatin/Triamcin Cream Tube 1 APPLIC TOPICAL (22:09)
[2018-11-25] MEDS: Metoprolol Tartrate 50 MG Tablet 75 MG PO (22:10)
[2018-11-26] VITALS (10 sets, daily range): BP systolic 136–177; BP diastolic 75–85; PULSE 54–69; RESP 12–18; TEMP 36.2–36.8; O2SAT 97–99; BMI 28.6
[2018-11-26] MEDS: Gabapentin 600 MG Tablet PO ×2 (06:07→13:42)
[2018-11-26 06:15] LABS: Cholesterol 233 mg/dL (200); High Density Lipoprotein 40 mg/dL; Triglycerides 171 mg/dL; Very Low Density Lipoprotein 34 mg/dL (5-40)
[2018-11-26] MEDS: Loratadine 10 MG Tablet PO (09:14)
[2018-11-26] MEDS: Nystatin/Triamcin Cream Tube 1 APPLIC TOPICAL (09:14)
[2018-11-26] MEDS: Losartan Potassium 50 MG Tablet PO (09:14)
[2018-11-26] MEDS: Aspirin 81 MG TAB.CHEW PO (09:14)
[2018-11-26] MEDS: Venlafaxine XR 75 MG Capsule PO (09:14)
[2018-11-26] MEDS: Metoprolol Tartrate 50 MG Tablet 75 MG PO (09:15)
--- NOTE | 2018-11-26 10:17 | NURSING ---
Student nurse charting reviewed.
[2018-11-26 10:46] LABS: Magnesium 2.2 mg/dL (1.6-2.6)
[2018-11-26 10:53] LABS: Hemoglobin A1c 5.5 % (4.2-6.3)
--- NOTE | 2018-11-26 11:24 | MRI_ITS ---
STUDY: MRI THORACIC SPINE WITHOUT CONTRAST REASON FOR EXAM: Female, 53 years old. Cord compression. Pain in neck and back with numbness in right arm. General weakness. TECHNIQUE: Standardized fat and water weighted pulse sequences were obtained in the sagittal and axial planes. COMPARISON: None. FINDINGS: Normal kyphosis of the thoracic spine. There is no substantial scoliosis. T1-2, T2-3, T3-4, T4-5, T5-6, T6-7, T7-8, T8-9, T9-10, T10-11, T11-12: Old anterior wedge compression fractures involving the upper T11 and T12 vertebral bodies. No suspicious acute or subacute fractures of the thoracic spine. Small T2 benign vertebral body hemangioma. No ventral extra dural defect. Mild T11-T12 disc space height narrowing. All remaining thoracic discs are normal. Normal central canal and bilateral intervertebral neural foramina. Normal visualized thoracic cord. Normal conus medullaris that terminates at the lower L1 vertebral body level. The soft tissue structures are unremarkable. MRI/Spine Thoracic (Routine) IMPRESSION: 1. No MRI evidence of thoracic extruded disc fragment, spinal stenosis or cord compressing lesions. 2. Normal thoracic spinal cord. 3. Old and mild anterior wedge compression fractures involving the upper T11 and T12 vertebral bodies. Electronically Signed: Fab Gamboa MD at 14:55 EDT , Service support ,
--- NOTE | 2018-11-26 11:24 | MRI_ITS ---
STUDY: MRI CERVICAL SPINE WITHOUT CONTRAST REASON FOR EXAM: Female, 53 years old. Neck pain and back with numbness in right arm. General weakness. TECHNIQUE: Standardized fat and water weighted pulse sequences were obtained in the sagittal and axial planes. COMPARISON: None FINDINGS: Normal foramen magnum and brainstem-cervical cord junction. Normal craniovertebral junction. Normal anterior atlantoaxial articulation. Normal odontoid process. Mild cervical kyphosis. Normal vertebral bodies and posterior osseous elements. C2-3: Normal endplates. Normal disc height, signal and morphology. Normal central canal and intervertebral neural foramina. C3-4: Normal endplates. Normal disc height, signal and morphology. Normal central canal and intervertebral neural foramina. C4-5: Normal endplates. Moderate disc space height narrowing. Minimal anterior and posterior marginal spurs. Normal central canal and bilateral intervertebral neural foramina. C5 benign vertebral body hemangioma. C5-6: Normal endplates. Moderate disc space height narrowing. Normal central canal. Moderate stenosis of the bilateral intervertebral neural foramina. C6-7: Normal endplates. Moderate disc space height narrowing. Minimal anterior and posterior marginal spurs. Normal central canal. Mild stenosis of the left intervertebral neural foramen. Normal right intervertebral neural foramen. C7-T1: Normal endplates. Normal disc height, signal and morphology. Normal central canal and intervertebral neural foramina. T1-T2: (Sagittal only). Normal endplates. Normal disc height, hydration and morphology. Normal central canal and bilateral intervertebral neural foramina. Ovoid T2 benign vertebral body hemangioma. T2-T3 and T3-T4: (Sagittal only). Normal endplates. Normal disc height, hydration and morphology. Normal central canal and bilateral intervertebral neural foramina. Normal cervical cord. Normal visualized soft tissue structures. MRI/Spine Cervical (Routine) IMPRESSION: 1. Moderate C5-C6 disc space height narrowing and moderate stenosis of the bilateral intervertebral neural foramina. 2. Moderate C6-C7 disc space height narrowing and mild stenosis of the left intervertebral neural foramen. 3. C5 and T2 benign vertebral body hemangiomas. 4. No MRI evidence of cervical extruded disc fragment. 5. Normal cervical spinal cord. Electronically Signed: Fab Gamboa MD at 15:02 EDT , Service support ,
--- NOTE | 2018-11-26 11:41 | PCM.CONS.GEN ---
Problem List (1) Right sided weakness Status: Acute (2) Hypertensive urgency Status: Acute Reason for Consult Date of Consultation: 11/26/18 Reason for Consultation: Right-sided weakness. History of Present Illness: The patient is a 53 year old F with PMH HTN, neuropathy, depression admitted with uncontrolled high blood pressure and later was noticed of have left facial droop and right-sided weakness. Per patient she denies any headache dizziness, visual disturbances at present. At present patient is having a slow pressured speech and does stutter at times, per patient this is not her baseline speech. She also can complains of having some weakness on the right side along with pain in the right arm and leg, she also complains of neck pain low back pain, also complains of some balance issues. Per patient she has been under a lot of stress recently, she lives alone does not drive as she cannot afford per patient, does not use any cane or a walker to ambulate, denies any frequent falls,. On admission patient was found to have uncontrolled hypertension are with SBP of more than 190 mmHg. MRI brain done on admission did not show any acute stroke, MR angiogram head/neck not reported to show any hemodynamically significant stenosis or occlusion. On examination patient does have some giveaway weakness along with inconsistent left facial asymmetry which did get better with counseling. [] Past Medical History Medical History: Medical History (Last Updated 11/25/18 @ 17:04 by Mikel Rasheed DO) HTN (hypertension) I10 Allergies Latex, Natural Rubber Allergy (Verified 11/25/18 14:01) Rash Home Medications: Ambulatory Orders Medication Instructions Recorded Metoprolol Tartrate [Lopressor 75 mg PO BID 03/02/16 (Beta Felicity)] Cetirizine HCl [Zyrtec] 10 mg PO DAILY 11/25/18 Gabapentin 600 mg PO TID 11/25/18 Losartan Potassium [Cozaar] 50 mg PO BID 11/25/18 Meloxicam 15 mg PO DAILY 11/25/18 Nystatin/Triamcin Cream [Mycolog] 1 applic TOPICAL BID 11/25/18 Venlafaxine HCl [Effexor Xr] 75 mg PO DAILY 11/25/18 Lives: Alone Smoking Status: Heavy Smoker (>10/day) Tobacco Use: Cigarettes Alcohol: None Drugs: None - *Family History Maternal Family History: Family History (Last Updated 11/25/18 @ 17:04 by Mikel Rasheed DO) Other CVA (cerebral vascular accident) Review of Systems Constitutional: Reports: - - Complete ROS negative except as documented in HPI Patient Problems: Active and Suspected Problems (Last Updated 11/25/18 @ 17:04 by Mikel Rasheed DO) CVA (cerebral vascular accident) (Acute) Hypertensive urgency (Acute) Right sided weakness (Acute) - Physical Exam General: Alert HEENT: Normocephalic Neck: Supple Lungs: Normal air movement Cardiovascular: Normal S1, Normal S2 Abdomen: Bowel Sounds Present Extremities: No cyanosis Neurological: - - consious, alert, AoAx3, CN 2-12 grossly intact except inconsisent left facial asymmtery, power 5/5 left UE/LE, righ UE/LE patient has give away weakness, does not put much effort, Crowell's sign is present on the right, subjetive sensory loss right UE/LE,plantars B/L flexor, no cerebellar signs, Reflexes ++ B/L B/S/T/K/A, gait deferred Psych/Mental Status: Normal Affect Vital Signs Temp Pulse Resp BP Pulse Ox 97.7 F L 66 18 177/80 H 97 11/26/18 09:23 11/26/18 09:23 11/26/18 10:07 11/26/18 09:23 11/26/18 09:32 Oxygen Delivery Method Room Air Weight: 85.5 kg Body Mass Index (BMI) 28.6 Finger Stick Blood Glucose 86 Intake and Output for Last 24 Hours 11/24/18 11/25/18 11/26/18 23:59 23:59 23:59 Intake Total 1260 / 1260 240 / 240 Balance 1260 / 1260 240 / 240 Laboratory Tests Past 24 Hrs 11/25/18 11/25/18 11/25/18 14:04 14:04 14:04 WBC 6.9 RBC 4.80 Hgb 14.5 Hct 42.7 MCV 89.0 MCH 30.2 MCHC 34.0 RDW 13.3 RDW Differential 43.1 Plt Count 238 MPV 12.5 H Immature Gran % (Auto) 0.100 Neut % (Auto) 50.3 Lymph % (Auto) 36.9 Stephens % (Auto) 9.2 Eos % (Auto) 2.9 Baso % (Auto) 0.6 Absolute Neuts (auto) 3.5 Absolute Lymphs (auto) 2.56 Total Counted Not Reportable PT Cancelled INR Cancelled APTT Cancelled Sodium 139 Potassium 4.5 Chloride 108 H Carbon Dioxide 27.0 Anion Gap 4 L BUN 28 H Creatinine 1.03 H Estim Creat Clear Calc 63.72 Est GFR (MDRD) Af Amer 72 Est GFR (MDRD) Non-Af 59 L BUN/Creatinine Ratio 27.2 H Glucose 89 Hemoglobin A1c Calcium 8.9 Magnesium Troponin I < 0.015 Triglycerides Cholesterol LDL Cholesterol VLDL Cholesterol HDL Cholesterol TSH 11/25/18 11/26/18 11/26/18 15:42 05:44 05:44 WBC RBC Hgb Hct MCV MCH MCHC RDW RDW Differential Plt Count MPV Immature Gran % (Auto) Neut % (Auto) Lymph % (Auto) Stephens % (Auto) Eos % (Auto) Baso % (Auto) Absolute Neuts (auto) Absolute Lymphs (auto) Total Counted PT 13.0 INR 1.0 APTT 43.5 H Sodium Potassium Chloride Carbon Dioxide Anion Gap BUN Creatinine Estim Creat Clear Calc Est GFR (MDRD) Af Amer Est GFR (MDRD) Non-Af BUN/Creatinine Ratio Glucose Hemoglobin A1c Calcium Magnesium 2.2 Troponin I Triglycerides 171 Cholesterol 233 H LDL Cholesterol 159 H VLDL Cholesterol 34 HDL Cholesterol 40 TSH 1.10 11/26/18 05:44 WBC RBC Hgb Hct MCV MCH MCHC RDW RDW Differential Plt Count MPV Immature Gran % (Auto) Neut % (Auto) Lymph % (Auto) Stephens % (Auto) Eos % (Auto) Baso % (Auto) Absolute Neuts (auto) Absolute Lymphs (auto) Total Counted PT INR APTT Sodium Potassium Chloride Carbon Dioxide Anion Gap BUN Creatinine Estim Creat Clear Calc Est GFR (MDRD) Af Amer Est GFR (MDRD) Non-Af BUN/Creatinine Ratio Glucose Hemoglobin A1c 5.5 Calcium Magnesium Troponin I Triglycerides Cholesterol LDL Cholesterol VLDL Cholesterol HDL Cholesterol TSH POC Glucose 11/25/18 15:23 POC Glucose 86 Assessment/Plan All Active Problems (Last Updated 11/25/18 @ 17:04 by Mikel Rasheed DO) CVA (cerebral vascular accident) (Acute) Hypertensive urgency (Acute) Right sided weakness (Acute) The patient is a 53 year old F with PMH HTN, neuropathy, depression admitted with uncontrolled high blood pressure and later was noticed of have left facial droop and right-sided weakness. Per patient she denies any headache dizziness, visual disturbances at present. At present patient is having a slow pressured speech and does stutter at times, per patient this is not her baseline speech. She also can complains of having some weakness on the right side along with pain in the right arm and leg, she also complains of neck pain low back pain, also complains of some balance issues. Per patient she has been under a lot of stress recently, she lives alone does not drive as she cannot afford per patient, does not use any cane or a walker to ambulate, denies any frequent falls,. On admission patient was found to have uncontrolled hypertension are with SBP of more than 190 mmHg. MRI brain done on admission did not show any acute stroke, MR angiogram head/neck not reported to show any hemodynamically significant stenosis or occlusion. On examination patient does have some giveaway weakness along with inconsistent left facial asymmetry which did get better with counseling. Impression Hypertensive urgency R/O cervical radiculopathy/lumbar stenosis Likely conversion syndrome, unlikely to be TIA or stroke at present Plan ?MRI brain and MR angiogram head/neck reviewed ?Check MRI C-spine and MRI L-spine without contrast. Patient may need spine surgery consult based on the MRI results. ?Better blood pressure control, will defer to hospitalist team ?Psychiatric consult ?Patient counseled to stop smoking. ?Fall precautions ?PT/OT ?GI/DVT prophylaxis ?Follow-up with neurology as outpatient ?Further medical management per hospitalist team ?Please call with questions if any ?Thank you for allowing us to participate in patient's care and management Code Visit Inpatient E&M: [id number] Init Hosp L3
--- NOTE | 2018-11-26 12:32 | CM.UR ---
RN CM Assessment Met face to face with patient for initial transition planning/care coordination assessment. Introduced myself and my role. Verb understanding and agreement for assessment. Presentation: High BP PCP: Dr. Cantu Specialists: Denies [facility] Insurance: [employer] Prescription Benefit: yes aliciasorosa m GARCIA: [place] Home: Apartment. Has about 20 steps w/railing to get to apartment. [place] housing. She is not allowed to have anyone live with her. ADLs: Lives alone. States independent with most things. States she does forget her meds on occasion. Transportation: Taxi DME: Denies. no preference on company if needed. Did ask about the SCDs because she feels they help with her neuropathy. Explained those are not provided for home use. Explained they are for only when immobile for awhile. SNF/HHC: Denies every having either. Passport/waiver program mgr: Denies Advance Directives: None. Gave the booklet and explained we can help with them, if desired. DC PLAN: Home. States she never wants to go to a SNF (Works at the [employer]). Agreeable to HHC. States that her (other) son from [place] is supposed to pick her up on Wednesday to take to her back to [place] to visit her mother who isn't doing well. Ana Paula Tavares RN, [facility].
--- NOTE | 2018-11-26 13:36 | DCINST_ITS ---
- Discharge Diagnoses Current Active Problems: Current Active and Chronic Problems (Last Updated 11/25/18 @ 17:04 by Mikel Rasheed DO) Hypertensive urgency (Acute) Right sided weakness (Acute) You will use the following diet at home:: Cardiac Discharge Activity: Return to Normal Activity Call your doctor if you observe: Numbness or Tingling, Shortness of breath, Dizziness, Fainting spells, Chest pain Allergies/Adverse Reactions: Allergies Latex, Natural Rubber Allergy (Verified 11/25/18 14:01) Rash Medications to take at Discharge Metoprolol Tartrate [Lopressor (beta ivett)] 75 mg PO BID 03/02/16 Cetirizine HCl [Zyrtec] 10 mg PO DAILY 11/25/18 Gabapentin 600 mg PO TID 11/25/18 Losartan Potassium [Cozaar] 50 mg PO BID 11/25/18 Meloxicam 15 mg PO DAILY 11/25/18 Nystatin/Triamcin Cream [Mycolog] 1 applic TOPICAL BID 11/25/18 Venlafaxine HCl [Effexor Xr] 75 mg PO DAILY 11/25/18 Atorvastatin Calcium 20 mg PO QHS #30 tablet 11/26/18 Hydrochlorothiazide [Hctz] 12.5 mg PO DAILY #30 tablet 11/26/18 The following prescriptions were given: Atorvastatin Calcium 20 mg PO QHS #30 tablet Hydrochlorothiazide [Hctz] 12.5 mg PO DAILY #30 tablet Primary Care Physician: Martin Cantu DO [Primary Care Provider] - Please follow up with your Primary Care Physician in: 1 Week Test Results: Test results from this visit will be discussed in further detail at your follow- up appointment, if applicable. Proposed Discharge Date: 11/26/18
--- NOTE | 2018-11-26 13:40 | PCM.DC.SUM ---
Discharge Date and Diagnosis Date of Admission: 11/25/18 Date of Discharge: 11/26/18 - Primary Discharge Diagnosis Active and Suspected Problems (Last Updated 11/25/18 @ 17:04 by Mikel Rasheed DO) 1. Suspected conversion syndrome, CVA ruled out 2. Hypertensive urgency 3. Hyperlipidemia 4. Depression 5. Possible cervical radiculopathy Hospital Course and Treatment Imaging Results: Diagnostic Data Brain CT 11/25/18 15:18 IMPRESSION: Chronic involutional changes of the brain. No hemorrhage. Electronically Signed: Larry Madera MD at 15:57 EDT , Service support , Chest X-Ray 11/25/18 15:35 IMPRESSION: Normal x-ray examination of the chest. Electronically Signed: Morenita Cesar MD at 16:00 EDT , Service support , Brain MRI 11/25/18 17:22 IMPRESSION: 1. Involutional changes of the brain, as described above. 2. No MR evidence for acute infarct. Electronically Signed: Melinda Vann MD at 10:13 EDT , Service support , Head MRA 11/25/18 17:22 IMPRESSION: Normal MRA of the head Electronically Signed: Crispin Arteaga at 21:50 EDT Tel , Service support , Neck MRA 11/25/18 17:22 IMPRESSION: Normal bilateral cervical carotid and vertebral arteries. Electronically Signed: Crispin Arteaga, at 23:52 EDT Tel , Service support , Dr. Kim- Neurology Operations: None Procedures: 2-D Echocardiogram Summary of Care Provided: The patient is a 53 year old F admitted 11/25/2018 due to right-sided weakness. 1. Suspected conversion syndrome, CVA ruled out-neurology consulted. Brain MRI showed no evidence of acute infarct. MRA of head normal. Neck MRA showed normal bilateral cervical carotid and vertebral arteries. Echocardiogram with EF 65%. Given exam findings, likely conversion syndrome. MRI of cervical spine pending to rule out cervical radiculopathy. This will be reviewed prior to discharge. Follow-up with primary care physician in 1 week. 2. Hypertensive urgency-continue home losartan, metoprolol regimen. Initiated on HCTZ 12.5 mg p.o. daily. Recommend BMP at follow-up with primary care physician. May need further medication titration if blood pressure remains above goal. 3. Hyperlipidemia-initiated on statin. Recommend repeat lipid panel in 4-6 weeks as outpatient. 4. Depression-continue home Effexor regimen. 5. Suspected radiculopathy-patient reports chronic neck pain. Cervical and thoracic MRI pending and will be reviewed prior to discharge. Patient seen and examined prior to discharge. Physical assessment as noted below. Patient is stable for discharge with follow up recommendations as noted above. This patient was seen by OLGA Johnson under the supervision of Dr. Hall. - Physical Exam General: Alert, Oriented x3, Cooperative HEENT: Atraumatic, PERRLA, EOMI, Normocephalic Neck: Supple, No JVD, Negative Carotid Bruits Lungs: Clear to auscultation, Normal air movement Cardiovascular: Regular rate, Regular Rhythm, Normal S1, Normal S2, No murmurs Abdomen: Bowel Sounds Present, Soft, Non Tender, Non-Distended Extremities: No clubbing, No cyanosis, No edema, Capillary Refill Less than 3 Seconds Skin: No rashes, No breakdown Musculoskeletal: No Tenderness to Palpation of Joints or Extremities Neurological: Cranial nerves II-XII grossly intact, Neuro grossly intact Psych/Mental Status: Normal Affect, Appropriate Vital Signs Temp Pulse Resp BP Pulse Ox 97.7 F L 65 18 177/80 H 97 11/26/18 09:23 11/26/18 11:56 11/26/18 10:07 11/26/18 09:23 11/26/18 09:32 Oxygen Delivery Method Room Air Weight: 188 lb 7.924 oz Body Mass Index (BMI) 28.6 Finger Stick Blood Glucose 86 Intake and Output for Last 24 Hours 11/24/18 11/25/18 11/26/18 23:59 23:59 23:59 Intake Total 1260 / 1260 240 / 240 Balance 1260 / 1260 240 / 240 Laboratory Tests Past 24 Hrs 11/25/18 11/25/18 11/25/18 14:04 14:04 14:04 WBC 6.9 RBC 4.80 Hgb 14.5 Hct 42.7 MCV 89.0 MCH 30.2 MCHC 34.0 RDW 13.3 RDW Differential 43.1 Plt Count 238 MPV 12.5 H Immature Gran % (Auto) 0.100 Neut % (Auto) 50.3 Lymph % (Auto) 36.9 Pine % (Auto) 9.2 Eos % (Auto) 2.9 Baso % (Auto) 0.6 Absolute Neuts (auto) 3.5 Absolute Lymphs (auto) 2.56 Total Counted Not Reportable PT Cancelled INR Cancelled APTT Cancelled Sodium 139 Potassium 4.5 Chloride 108 H Carbon Dioxide 27.0 Anion Gap 4 L BUN 28 H Creatinine 1.03 H Estim Creat Clear Calc 63.72 Est GFR (MDRD) Af Amer 72 Est GFR (MDRD) Non-Af 59 L BUN/Creatinine Ratio 27.2 H Glucose 89 Hemoglobin A1c Calcium 8.9 Magnesium Troponin I < 0.015 Triglycerides Cholesterol LDL Cholesterol VLDL Cholesterol HDL Cholesterol TSH 11/25/18 11/26/18 11/26/18 15:42 05:44 05:44 WBC RBC Hgb Hct MCV MCH MCHC RDW RDW Differential Plt Count MPV Immature Gran % (Auto) Neut % (Auto) Lymph % (Auto) Pine % (Auto) Eos % (Auto) Baso % (Auto) Absolute Neuts (auto) Absolute Lymphs (auto) Total Counted PT 13.0 INR 1.0 APTT 43.5 H Sodium Potassium Chloride Carbon Dioxide Anion Gap BUN Creatinine Estim Creat Clear Calc Est GFR (MDRD) Af Amer Est GFR (MDRD) Non-Af BUN/Creatinine Ratio Glucose Hemoglobin A1c Calcium Magnesium 2.2 Troponin I Triglycerides 171 Cholesterol 233 H LDL Cholesterol 159 H VLDL Cholesterol 34 HDL Cholesterol 40 TSH 1.10 11/26/18 05:44 WBC RBC Hgb Hct MCV MCH MCHC RDW RDW Differential Plt Count MPV Immature Gran % (Auto) Neut % (Auto) Lymph % (Auto) Pine % (Auto) Eos % (Auto) Baso % (Auto) Absolute Neuts (auto) Absolute Lymphs (auto) Total Counted PT INR APTT Sodium Potassium Chloride Carbon Dioxide Anion Gap BUN Creatinine Estim Creat Clear Calc Est GFR (MDRD) Af Amer Est GFR (MDRD) Non-Af BUN/Creatinine Ratio Glucose Hemoglobin A1c 5.5 Calcium Magnesium Troponin I Triglycerides Cholesterol LDL Cholesterol VLDL Cholesterol HDL Cholesterol TSH POC Glucose 11/25/18 15:23 POC Glucose 86 Discharge Diet: Low fat/ Low Cholesterol Discharge Activity: Return to Normal Activity Call your doctor if you observe: Numbness or Tingling, Shortness of breath, Dizziness, Fainting spells, Chest pain Home Medications: Medications to take at Discharge Metoprolol Tartrate [Lopressor (beta ivett)] 75 mg PO BID 03/02/16 Cetirizine HCl [Zyrtec] 10 mg PO DAILY 11/25/18 Gabapentin 600 mg PO TID 11/25/18 Losartan Potassium [Cozaar] 50 mg PO BID 11/25/18 Meloxicam 15 mg PO DAILY 11/25/18 Nystatin/Triamcin Cream [Mycolog] 1 applic TOPICAL BID 11/25/18 Venlafaxine HCl [Effexor Xr] 75 mg PO DAILY 11/25/18 Atorvastatin Calcium 20 mg PO QHS #30 tablet 11/26/18 Hydrochlorothiazide [Hctz] 12.5 mg PO DAILY #30 tablet 11/26/18 Following Prescrptions Were Given to Patient: Atorvastatin Calcium 20 mg PO QHS #30 tablet Hydrochlorothiazide [Hctz] 12.5 mg PO DAILY #30 tablet Primary Care Physician: Martin Cantu DO [Primary Care Provider] - Please follow up with your Primary Care Physician in: 1 Week Disposition: Home Minutes spent on discharge:: 35 Patient Condition:: Stable Medical Necessity - Tobacco Use Smoking Status: Heavy Smoker (>10/day) Tobacco Use: Cigarettes Meaningful Use Info Meaningful Use Diagnoses (Choose all that apply): None applicable
--- NOTE | 2018-11-26 13:44 | DS.PCM_ITS ---
Addendum entered and electronically signed by OLGA Johnson 11/26/18 15:49: Code Visit Cervical spine MRI showed the followin. Moderate C5-C6 disc space height narrowing and moderate stenosis of the bilateral intervertebral neural foramina. 2. Moderate C6-C7 disc space height narrowing and mild stenosis of the left intervertebral neural foramen. 3. C5 and T2 benign vertebral body hemangiomas. Immediate referral to spine surgeon is not necessary at this point however this can be discussed further with PCP given chronic neck pain. Outpatient referral may be appropriate. Addendum entered and electronically signed by Yumiko Hall 11/26/18 14:03: Code Visit ATTENDING PHYSICIAN DISCHARGE NOTE: I have seen and examined the patient independently and agree with the assessment, plan, history per Radha Quintana as noted. Discharge Diagnoses: (1) Right sided weakness secondary to suspected coversion syndrome, unlikely TIA (2) Hypertensive Urgency (3) Hyperlipidemia, Untreated (4) Chronic Neck and Lumbar Back Pain w/ Suspected Cervical Radiculopathy (5) Anxiety and Depression (6) Tobacco use (7) Allergic Rhinitis Discharge Summary: The patient is a 53 y/o F w/ PMHx: HTN, HLD, Chronic neck and lumbar pain, Anxiety and Depression, Tobacco use, Allergic Rhinitis who presents to the [facility] ED on 11/25/18 w/ history of 1-2-day history of right-sided weakness with PCP evaluation with notably elevated blood pressure with referral immediately to the ED with concern upon evaluation for ongoing right-sided weakness and left facial droop concurrent complaint of right upper extremity paresthesias. ED evaluation with unremarkable labs, normal cardiac enzymes, EKG with no acute evidence of ischemia, CT head with no acute findings, chest x-ray with no acute findings. Patient was admitted to PCU, continued NIH stroke scale evaluations, MRI of the brain as well as MRA of the head and neck were obtained and were unremarkable with no evidence of acute stroke. Echocardiogram with normal LV systolic function, EF 65%, aneurysmal atrial septum, trivial MDI, trivial TBI, RVSP 22 mmHg, diastolic function indeterminate bubble contrast study negative. Patient blood pressure was notably elevated upon initial presentation, improved, additional low-dose hydrochlorthiazide added with recommended follow-up with primary care physician with continued blood pressure monitoring as well as repeat BMP outpatient. FLP obtained during admission and elevated levels noted, statin initiated. Patient was evaluated by neurology and had ongoing symptoms but following discussions and suspected conversion did improve. To be cautious cervical spine MRI obtained to assess for worsening radiculopathy and cord involvement as etiology for current presentation per Neurology recommendation. Discharge Time: > 35 Minutes DAY OF DISCHARGE PROGRESS NOTE: Subjective: Patient without acute event overnight per self and nursing report. Patient denies fever, chills, nausea, emesis, abdominal pain, chest pain or dyspnea. Patient with resolution of prior neurological symptoms including right-sided weakness and left-sided facial droop. Patient agreeable to discharge to home. Patient will be discharged with follow-up with primary care physician within 3-5 days. Objective: T 97.7, heart rate 66, BP 177/80, respiratory rate 18, 99% on room air. Physical Examination: General: awake, alert, oriented x 3 and cooperative, seated upright in the bed, NAD some stuttering. Skin: normal color, turgor, no icterus, cyanosis. HEENT: AT/NC, EOMI, PERRLA, MMM, no evidence of facial drooping. Lungs: CTA bilaterally, moderate effort, mild decrease BL bases, no rales, ronchi or wheezing; Heart: Regular rate and rhythm; no gallop, rub audible. Abdomen: soft, NTTP, ND, normal BS. Extremities: no cyanosis, clubbing, or edema. Neurological: patient awake, alert, oriented x 3; cognitive function appears intact upon questioning,; pupils equally reactive to light and accomodation; cranial nerves II-XII grossly normal, moving all 4 extremities, strength appropriate, sensation intact. Psychiatric: affect appears normal, no acute evidence of depressive or anxiety feelings. Assessment and Plan: Please see hospital summary above. OBSV E&M: 10645 Observation care discharge Original Note: Discharge Date and Diagnosis Date of Admission: 11/25/18 Date of Discharge: 11/26/18 - Primary Discharge Diagnosis Active and Suspected Problems (Last Updated 11/25/18 @ 17:04 by Mikel Rasheed DO) 1. Suspected conversion syndrome, CVA ruled out 2. Hypertensive urgency 3. Hyperlipidemia 4. Depression 5. Possible cervical radiculopathy Hospital Course and Treatment Imaging Results: Diagnostic Data Brain CT 11/25/18 15:18 IMPRESSION: Chronic involutional changes of the brain. No hemorrhage. Electronically Signed: Larry Madera MD at 15:57 EDT , Service support , Chest X-Ray 11/25/18 15:35 IMPRESSION: Normal x-ray examination of the chest. Electronically Signed: Morenita Cesar MD at 16:00 EDT , Service support , Brain MRI 11/25/18 17:22 IMPRESSION: 1. Involutional changes of the brain, as described above. 2. No MR evidence for acute infarct. Electronically Signed: Melinda Vann MD at 10:13 EDT , Service support , Head MRA 11/25/18 17:22 IMPRESSION: Normal MRA of the head Electronically Signed: Crispin Arteaga at 21:50 EDT Tel , Service support , Neck MRA 11/25/18 17:22 IMPRESSION: Normal bilateral cervical carotid and vertebral arteries. Electronically Signed: Crispin Arteaga at 23:52 EDT Tel , Service support , Dr. Kim- Neurology Operations: None Procedures: 2-D Echocardiogram Summary of Care Provided: The patient is a 53 year old F admitted 11/25/2018 due to right-sided weakness. 1. Suspected conversion syndrome, CVA ruled out-neurology consulted. Brain MRI showed no evidence of acute infarct. MRA of head normal. Neck MRA showed normal bilateral cervical carotid and vertebral arteries. Echocardiogram with EF 65%. Given exam findings, likely conversion syndrome. MRI of cervical spine pending to rule out cervical radiculopathy. This will be reviewed prior to discharge. Follow-up with primary care physician in 1 week. 2. Hypertensive urgency-continue home losartan, metoprolol regimen. Initiated on HCTZ 12.5 mg p.o. daily. Recommend BMP at follow-up with primary care physician. May need further medication titration if blood pressure remains above goal. 3. Hyperlipidemia-initiated on statin. Recommend repeat lipid panel in 4-6 weeks as outpatient. 4. Depression-continue home Effexor regimen. 5. Suspected radiculopathy-patient reports chronic neck pain. Cervical and thoracic MRI pending and will be reviewed prior to discharge. Patient seen and examined prior to discharge. Physical assessment as noted below. Patient is stable for discharge with follow up recommendations as noted above. This patient was seen by OLGA Johnson under the supervision of Dr. Derik burris. - Physical Exam General: Alert, Oriented x3, Cooperative HEENT: Atraumatic, PERRLA, EOMI, Normocephalic Neck: Supple, No JVD, Negative Carotid Bruits Lungs: Clear to auscultation, Normal air movement Cardiovascular: Regular rate, Regular Rhythm, Normal S1, Normal S2, No murmurs Abdomen: Bowel Sounds Present, Soft, Non Tender, Non-Distended Extremities: No clubbing, No cyanosis, No edema, Capillary Refill Less than 3 Seconds Skin: No rashes, No breakdown Musculoskeletal: No Tenderness to Palpation of Joints or Extremities Neurological: Cranial nerves II-XII grossly intact, Neuro grossly intact Psych/Mental Status: Normal Affect, Appropriate Vital Signs Temp Pulse Resp BP Pulse Ox 97.7 F L 65 18 177/80 H 97 11/26/18 09:23 11/26/18 11:56 11/26/18 10:07 11/26/18 09:23 11/26/18 09:32 Oxygen Delivery Method Room Air Weight: 188 lb 7.924 oz Body Mass Index (BMI) 28.6 Finger Stick Blood Glucose 86 Intake and Output for Last 24 Hours 11/24/18 11/25/18 11/26/18 23:59 23:59 23:59 Intake Total 1260 / 1260 240 / 240 Balance 1260 / 1260 240 / 240 Laboratory Tests Past 24 Hrs 11/25/18 11/25/18 11/25/18 14:04 14:04 14:04 WBC 6.9 RBC 4.80 Hgb 14.5 Hct 42.7 MCV 89.0 MCH 30.2 MCHC 34.0 RDW 13.3 RDW Differential 43.1 Plt Count 238 MPV 12.5 H Immature Gran % (Auto) 0.100 Neut % (Auto) 50.3 Lymph % (Auto) 36.9 [place] % (Auto) 9.2 Eos % (Auto) 2.9 Baso % (Auto) 0.6 Absolute Neuts (auto) 3.5 Absolute Lymphs (auto) 2.56 Total Counted Not Reportable PT Cancelled INR Cancelled APTT Cancelled Sodium 139 Potassium 4.5 Chloride 108 H Carbon Dioxide 27.0 Anion Gap 4 L BUN 28 H Creatinine 1.03 H Estim Creat Clear Calc 63.72 Est GFR (MDRD) Af Amer 72 Est GFR (MDRD) Non-Af 59 L BUN/Creatinine Ratio 27.2 H Glucose 89 Hemoglobin A1c Calcium 8.9 Magnesium Troponin I < 0.015 Triglycerides Cholesterol LDL Cholesterol VLDL Cholesterol HDL Cholesterol TSH 11/25/18 11/26/18 11/26/18 15:42 05:44 05:44 WBC RBC Hgb Hct MCV MCH MCHC RDW RDW Differential Plt Count MPV Immature Gran % (Auto) Neut % (Auto) Lymph % (Auto) [place] % (Auto) Eos % (Auto) Baso % (Auto) Absolute Neuts (auto) Absolute Lymphs (auto) Total Counted PT 13.0 INR 1.0 APTT 43.5 H Sodium Potassium Chloride Carbon Dioxide Anion Gap BUN Creatinine Estim Creat Clear Calc Est GFR (MDRD) Af Amer Est GFR (MDRD) Non-Af BUN/Creatinine Ratio Glucose Hemoglobin A1c Calcium Magnesium 2.2 Troponin I Triglycerides 171 Cholesterol 233 H LDL Cholesterol 159 H VLDL Cholesterol 34 HDL Cholesterol 40 TSH 1.10 11/26/18 05:44 WBC RBC Hgb Hct MCV MCH MCHC RDW RDW Differential Plt Count MPV Immature Gran % (Auto) Neut % (Auto) Lymph % (Auto) [place] % (Auto) Eos % (Auto) Baso % (Auto) Absolute Neuts (auto) Absolute Lymphs (auto) Total Counted PT INR APTT Sodium Potassium Chloride Carbon Dioxide Anion Gap BUN Creatinine Estim Creat Clear Calc Est GFR (MDRD) Af Amer Est GFR (MDRD) Non-Af BUN/Creatinine Ratio Glucose Hemoglobin A1c 5.5 Calcium Magnesium Troponin I Triglycerides Cholesterol LDL Cholesterol VLDL Cholesterol HDL Cholesterol TSH POC Glucose 11/25/18 15:23 POC Glucose 86 Discharge Diet: Low fat/ Low Cholesterol Discharge Activity: Return to Normal Activity Call your doctor if you observe: Numbness or Tingling, Shortness of breath, Dizziness, Fainting spells, Chest pain Home Medications: Medications to take at Discharge Metoprolol Tartrate [Lopressor (beta ivett)] 75 mg PO BID 03/02/16 Cetirizine HCl [Zyrtec] 10 mg PO DAILY 11/25/18 Gabapentin 600 mg PO TID 11/25/18 Losartan Potassium [Cozaar] 50 mg PO BID 11/25/18 Meloxicam 15 mg PO DAILY 11/25/18 Nystatin/Triamcin Cream [Mycolog] 1 applic TOPICAL BID 11/25/18 Venlafaxine HCl [Effexor Xr] 75 mg PO DAILY 11/25/18 Atorvastatin Calcium 20 mg PO QHS #30 tablet 11/26/18 Hydrochlorothiazide [Hctz] 12.5 mg PO DAILY #30 tablet 11/26/18 Following Prescrptions Were Given to Patient: Atorvastatin Calcium 20 mg PO QHS #30 tablet Hydrochlorothiazide [Hctz] 12.5 mg PO DAILY #30 tablet Primary Care Physician: Martin Cantu DO [Primary Care Provider] - Please follow up with your Primary Care Physician in: 1 Week Disposition: Home Minutes spent on discharge:: 35 Patient Condition:: Stable Medical Necessity - Tobacco Use Smoking Status: Heavy Smoker (>10/day) Tobacco Use: Cigarettes Meaningful Use Info Meaningful Use Diagnoses (Choose all that apply): None applicable
[2018-11-26] MEDS: hydroCHLOROthiazide 12.5mg 12.5 MG PO (14:12)
== END 2018-11-26 16:04 | disposition home health service (06) ==
LOC: ED 15:41 → PCU 11-26 06:51
PROVIDERS: Emergency Provider Emergency Medicine; Family Provider Student in an Organized Health Care Education/Training Program; PCP Student in an Organized Health Care Education/Training Program; Visit Provider Family Medicine
DX: I16.0 Hypertensive urgency (principal); E78.5 Hyperlipidemia, unspecified; R53.1 Weakness; F41.9 Anxiety disorder, unspecified; F32.9 Major depressive disorder, single episode, unspecified; G89.29 Other chronic pain; I10 Essential (primary) hypertension; G62.9 Polyneuropathy, unspecified; R29.810 Facial weakness; R47.81 Slurred speech; Z79.899 Other long term (current) drug therapy; F17.210 Nicotine dependence, cigarettes, uncomplicated; J30.9 Allergic rhinitis, unspecified; M54.2 Cervicalgia; M54.5 Low back pain
CPT/HCPCS: 36415; 70450; 70544; 70549; 70553; 71045; 72141; 72146; 80048; 80061; 82962; 83036; 83735; 84443; 84484; 85025; 85610; 85730; 92610; 93005; 93306; 97162; 97166; 99218; 99285; 99406; A9575; Q9957; A4216; G0378

== ENCOUNTER 2019-08-25 14:27 | Emergency (ER) | payer SELFPAY ==
[2018-11-26 09:35] VITALS: BMI 28.6
[2019-08-25 14:30] VITALS: BP 161/124; PULSE 151; RESP 22; TEMP 37.1; O2SAT 98; BMI 28.8
[2019-08-25 14:40] VITALS: PULSE 121; RESP 24
--- NOTE | 2019-08-25 14:46 | EKG12_ITS ---
Test Reason : PALP Blood Pressure : / mmHG Vent. Rate : 113 BPM Atrial Rate : 113 BPM P-R Int : 184 ms QRS Dur : 092 ms QT Int : 324 ms P-R-T Axes : 072 067 122 degrees QTc Int : 444 ms Sinus tachycardia Possible Left atrial enlargement Nonspecific ST and T wave abnormality Abnormal ECG Confirmed by RAMA DURAND ([id number]), staff editor MEHRAN MARTINEZ ([id number]) on 08/29/2019 2:37:17 PM Referred By: SARITHA
--- NOTE | 2019-08-25 14:47 | CT_ITS ---
STUDY: CT LUMBAR SPINE WITHOUT CONTRAST REASON FOR EXAM: Female, 54 years old. Left-sided pain RADIATION DOSAGE (If Supplied By Facility): CTDIvol = ( 21.76 ) mGy, DLP = ( 920.43 ) mGycm TECHNIQUE: The patient was scanned in a multi detector CT scanner. High resolution transaxial imaging was performed. Images were obtained through the lumbar spine. Sagittal and coronal images were reconstructed. Individualized dose optimization techniques were used for this CT. COMPARISON: CT of the abdomen and pelvis dated 04/08/2017 FINDINGS: There is no evidence of fracture or dislocation in the lumbar spine. The vertebral body heights are well-maintained. There are mild multilevel degenerative changes which are stable when compared with the prior CT. The visualized paraspinal soft tissues are within normal limits. CT/Spine Lumbar without Contrast IMPRESSION: No fracture or dislocation in the lumbar spine. Stable mild degenerative change. Electronically Signed: Sarwat Marquez, at 17:23 EST Tel , Service support ,
--- NOTE | 2019-08-25 14:47 | CT_ITS ---
STUDY: CT ABDOMEN AND PELVIS WITHOUT CONTRAST REASON FOR EXAM: Female, 54 years old. Left flank pain RADIATION DOSAGE (If Supplied By Facility): CTDIvol = ( 16.95 ) mGy, DLP = ( 919.11 ) mGycm TECHNIQUE: Transaxial images were obtained from the dome of the diaphragm to the symphysis pubis without oral contrast, and without intravenous contrast. Sagittal and coronal images were reconstructed. Individualized dose optimization techniques were used for this CT. COMPARISON: CT abdomen and pelvis 04/08/2017. FINDINGS: Lack of intravenous contrast limits evaluation of abdominal and pelvic organs. The visualized lung bases are unremarkable. The visualized portions of the heart are within normal limits. Normal liver. Normal gallbladder and extrahepatic biliary system. Normal spleen. Normal pancreas. Normal bilateral adrenal glands. Normal right kidney. Normal left kidney. No hydronephrosis or renal stone Normal visualized stomach. Normal small intestine. Normal colon. The appendix is visualized and appears normal. Normal abdominal aorta. Normal inferior vena cava. Normal retroperitoneum. Normal urinary bladder. Normal abdominal wall. There is a mild levocurvature of the lumbar spine. There are mild degenerative changes of the spine. CT/Abdomen/Pelvis without Cont IMPRESSION: No hydronephrosis or renal stone. No acute abdominal or pelvic pathology. Electronically Signed: Yoly Arriola, at 17:07 EST Tel , Service support ,
[2019-08-25] MEDS: Ketorolac 15 MG/ML Vial IV (14:59)
[2019-08-25 15:14] VITALS: BP 153/87; PULSE 90; RESP 19; O2SAT 96
[2019-08-25 15:14] LABS: Absolute Lymphocyte Count 3.13 X10^3/uL (0.83-4.51); Absolute Neutrophil Count 4.3 X10^3/uL (2.0-7.7); Basophil# 0.04 X10^3/uL; Basophil% 0.5 % (0-1); Eosinophil# 0.16 X10^3/uL; Hematocrit 44.5 % (37-47); Hemoglobin 14.8 g/dL (12.0-15.0); Lymphocyte # 3.13 X10^3/ul (4.0); Lymphocyte % 38.6 % (19-41); Mean Corp Hgb Conc 33.3 g/dL (32-36); Mean Corpuscular Volume 90.3 fL (81-99); Mean Platelet Vol. 12.1 fl (6.2-12.0); Monocyte# 0.41 X10^3/uL; Monocyte% 5.1 % (0-10); NRBC Flagged by Analyzer 0 % (0-5); Neutrophil # 4.34 X10^3/uL (2.7-7.7); Neutrophil % 53.4 % (47-70); Platelet Count 220 K/mm3 (150-450); RBC Distribution Width CV 12.8 % (11.6-14.6); RBC Distribution Width SD 42.5 fl (35.1-43.9); Red Blood Count 4.93 M/mm3 (4.2-5.4); White Blood Count 8.1 K/mm3 (4.4-11.0)
[2019-08-25 15:25] LABS: Anion Gap 7 (5-15); BUN 41 mg/dL (7-18); BUN/Creat Ratio 33.9 RATIO (10-20); Calcium,Total 9.8 mg/dL (8.5-10.1); Chloride 107 mmol/L (98-107); Creatinine, Serum 1.21 mg/dL (0.55-1.02); EST Glomerular Filtration Rate 49 mL/min (>60); Est Glom Filt Rate - Afr Amer 60 mL/min (>60); Estimated Creatinine Clearance 53.62 ml/min; Glucose 139 mg/dL (74-106); Potassium 3.5 mmol/L (3.5-5.1); Sodium Level 143 mmol/L (136-145)
--- NOTE | 2019-08-25 15:37 | ED.DCSUM_ITS ---
History of Present Illness Chief Complaint: Palpitations Narrative: Patient presenting secondary to palpitations and back pain. Patient states that yesterday she was working on taking down a tree. She reports she was reaching for tool and she had a sudden onset of severe lower back pain. She localizes this in her left lumbar spine. She states that there is no radiation to the legs. No bowel or bladder incontinence, fevers, unintended weight loss, history of recent injection surgery or IV drug abuse. Patient states that it is been a persistent pain that somewhat worse with movement. Additionally the patient states that she has been dealing with palpitations recently. She had a fleeting moment of chest pain today. Patient reports that she typically is supposed to be on metoprolol but she has not been taking it over the course of the last week as her insurance ran out and she is no longer able to afford her medications. Past Medical History - Allergies and Home Meds Allergies/Adverse Reactions: Allergies Latex, Natural Rubber Allergy (Verified 08/25/19 14:32) Rash Primary Care Physician: Martin Cantu DO [Primary Care Provider] - 3-5 Days Past Medical History: - - Stroke, hypertension Smoking Status: Current every day smoker Review of Systems All systems negative except as indicated General: Denies: Chills, Fever, Sweats Eyes: Denies: Visual changes - bilaterally, Diplopia ENT: Denies: Rhinorrhea, Sore throat Cardiovascular: Reports: Chest pain, Palpitations, Heart racing Respiratory: Denies: Dyspnea, Cough, Dyspnea on exertion Gastrointestinal: Denies: Abdominal pain, Nausea, Vomiting, Diarrhea, Melena, Hematochezia Genitourinary: Denies: Dysuria, Hematuria, Frequency Musculoskeletal: Reports: Back pain Skin: Denies: Rash, Wounds Neurological: Denies: Headache, Weakness, Numbness Physical Exam Vital Signs/Narrative: Vital Signs Temp Pulse Resp BP Pulse Ox 08/25/19 15:14 90 19 H 153/87 H 96 08/25/19 14:40 121 H 24 H 08/25/19 14:30 98.8 F 151 H 22 H 161/124 H 98 Inital Vital Signs reviewed: Yes General: Well nourished, Well developed, No Acute Distress Head: Normocephalic, Atraumatic Eyes: Perrl, EOMI ENT: Moist mucous membranes, No rhinorrhea Neck: Supple, Nontender Cardiovascular: Regular rate, No murmurs, Tachycardia Respiratory: No distress, CTA bilaterally, Chest nontender Abdomen: Soft, Nontender, Nondistended, Normal bowel sounds, No masses Back: Normal Inspection, - - Lower lumbar tenderness to palpation without any evidence of step-offs Extremities: Nontender, No edema Skin: Normal color, No rash Neurological: Alert, Oriented x3, Cranial nerves II-XII grossly intact, Normal Strength, Normal Sensation, - - 5 out of 5 strength at the hip knee ankle and foot. Normal sensation over all dermatomes. 1+ Achilles and patellar reflexes bilaterally, negative clonus. Psychological: Normal affect, Normal Mood Diagnostic/Tx/Re-eval - EKG Initial EKG Interpretation: - - Sinus tachycardia with a rate of 113. Isoelectric ST segments normal T waves no evidence of acute ischemia or arrhythmia. - Medical Decision Making Patient presented with a sudden onset of lower back pain and palpitations. I performed a bedside ultrasound on the patient to assess the abdominal aorta and its found to be normal in caliber. Patient was given Toradol for treatment of pain. EKG showed sinus tachycardia without evidence of ischemia. CBC chemistry and troponin were found to be unremarkable. Patient was given a dose of Lopressor and had immediate improvement of her heart rate to a rate of 90. CT a bdomen and pelvis is read per radiology is negative. CT lumbar spine is still pending at this time. Patient will be signed out to the oncoming provider who will follow up on results of that CT scan. Patient will be discharged with a course of metoprolol as I feel that that is the cause of her palpitations. She will speak with social work as to how she can obtain her medications while she is between insurances. ED Disposition - Plan for ED Patient: Disposition: Home or Assisted Living Diagnosis: Palpitations, Lumbar strain Instructions: Self-Care for Low Back Pain, Palpitations Prescriptions: Metoprolol Tartrate 75 mg PO BID #60 tab Prescription Printed Referrals: Martin Cantu DO [Primary Care Provider] - 3-5 Days
[2019-08-25 16:01] VITALS: BP 134/79; PULSE 81; RESP 17; O2SAT 98
--- NOTE | 2019-08-25 17:27 | ED.DEP ---
ED Disposition - Plan for ED Patient: Disposition: Home or Assisted Living Diagnosis: Palpitations, Lumbar strain Instructions: Self-Care for Low Back Pain, Palpitations Prescriptions: Metoprolol Tartrate 75 mg PO BID #180 tab Prescription Printed Metoprolol Tartrate 75 mg PO BID #60 tab Prescription Printed Referrals: Martin Cantu DO [Primary Care Provider] - 3-5 Days
[2019-08-25 17:31] VITALS: BP 159/72; PULSE 69; RESP 16; O2SAT 98
--- NOTE | 2019-08-25 17:35 | CM.ED ---
SOCIAL WORK INFORMANT: DR. GU REASON FOR REFERRAL: RESOURCES/RX ASSIST INFORMED BY DR. GU PATIENT NEEDING ASSIST WITH OBTAINING MEDICATIONS. RECOMMENDING METOPROLOL BE FILLED. CALL TO PHARMACY FOR COST OF MEDICATION-$14.46. RECEIVED APPROVAL FROM [facility] FOR 1X HOSPITAL ASSIST. MET WITH PATIENT IN ROOM. INTRODUCED ROLE AND REASON FOR REFERRAL. PATIENT REPORTS [employer] LAPSED AND HAS RE-APPLIED AND WAITING FOR COVERAGE. DISCUSSED MEDICATIONS. PATIENT STATES HAS BEEN HAVING DIFFICULTY AFFORDING MEDICATIONS. INFORMED HOSPTIAL ABLE TO PROVIDE METOPROLOL THROUGH HOSPITAL ASSIST PROGRAM FOR A 1 TIME REFILL. PATIENT VERBALIZED UNDERSTANDING AND THANKED THIS WORKER. HOSPITAL ASSIST INTERVENTION COMPLETED AND SCRIPT OBTAINED AND TAKEN TO PHARMACY. PHARMACY WORKER TO DELIVER MEDICATION TO PATIENT'S ROOM ONCE FILLED. PATIENT AND STAFF UPDATED. PLAN: HOME WITH 1X MEDICATION REFILL THROUGH HOSPITAL ASSIST PROGRAM FOR METOPROLOL. Ankush TITUS MSW, DRY END OPERATOR.
== END 2019-08-25 17:39 | disposition home or self-care (01) ==
PROVIDERS: Emergency Provider Emergency Medicine; Family Provider Student in an Organized Health Care Education/Training Program; PCP Student in an Organized Health Care Education/Training Program
DX: R00.2 Palpitations (principal); S39.012A Strain of muscle, fascia and tendon of lower back, initial encounter; I10 Essential (primary) hypertension; F17.200 Nicotine dependence, unspecified, uncomplicated; Z86.73 Personal history of transient ischemic attack (TIA), and cerebral infarction without residual deficits; Z79.899 Other long term (current) drug therapy; X50.1XXA Overexertion from prolonged static or awkward postures, initial encounter; Y93.89 Activity, other specified; Y92.008 Other place in unspecified non-institutional (private) residence as the place of occurrence of the external cause; Y99.8 Other external cause status
CPT/HCPCS: 72131; 74176; 80048; 84484; 85025; 93005; 96374; 96375; 99284

== ENCOUNTER 2019-10-06 20:29 | Emergency (ER) | payer MEDICAID, SELFPAY ==
[2019-10-06 20:30] VITALS: BP 151/106; PULSE 86; RESP 15; TEMP 36.6; O2SAT 98; BMI 30.6
--- NOTE | 2019-10-06 21:11 | EKG12_ITS ---
Test Reason : CHEST OTHER Blood Pressure : / mmHG Vent. Rate : 070 BPM Atrial Rate : 070 BPM P-R Int : 196 ms QRS Dur : 100 ms QT Int : 430 ms P-R-T Axes : 054 047 065 degrees QTc Int : 464 ms Normal sinus rhythm Possible Left atrial enlargement Borderline ECG Confirmed by ROSE MARIE PATEL, KIRT ([id number]), editor magazine MEHRAN MARTINEZ ([id number]) on 10/09/2019 11:15:09 AM Referred By: LAWANDA/GENARO Confirmed By:TURNER TROTTER MD
[2019-10-06] MEDS: DiphenhydrAMINE 50 MG/ML Syringe 25 MG IV (21:18)
[2019-10-06] MEDS: Ondansetron 4 MG/2 ML Vial IV (21:18)
[2019-10-06] MEDS: Metoclopramide 10 MG/2 ML Vial IV (21:19)
[2019-10-06] MEDS: 0.9% Normal Saline 1,000 ML 1000 ML IV (21:19)
[2019-10-06 21:23] LABS: Absolute Lymphocyte Count 2.43 X10^3/uL (0.83-4.51); Absolute Neutrophil Count 3.5 X10^3/uL (2.0-7.7); Basophil# 0.04 X10^3/uL; Basophil% 0.6 % (0-1); Eosinophil# 0.15 X10^3/uL; Eosinophils% 2.3 % (0-5); Hematocrit 41.8 % (37-47); Hemoglobin 13.9 g/dL (12.0-15.0); Lymphocyte # 2.43 X10^3/ul (4.0); Lymphocyte % 37.3 % (19-41); Mean Corp Hgb Conc 33.3 g/dL (32-36); Mean Corpuscular Hgb 29.7 pg (27.0-32.0); Mean Corpuscular Volume 89.3 fL (81-99); Mean Platelet Vol. 11.9 fl (6.2-12.0); Monocyte% 6.1 % (0-10); NRBC Flagged by Analyzer 0 % (0-5); Neutrophil # 3.49 X10^3/uL (2.7-7.7); Neutrophil % 53.5 % (47-70); Platelet Count 211 K/mm3 (150-450); RBC Distribution Width CV 12.3 % (11.6-14.6); RBC Distribution Width SD 39.9 fl (35.1-43.9); Red Blood Count 4.68 M/mm3 (4.2-5.4); White Blood Count 6.5 K/mm3 (4.4-11.0)
--- NOTE | 2019-10-06 21:30 | ED.DCSUM_ITS ---
- ER Visit Summary Date of Service: 10/06/19 Chief Complaint: Headache History of Present Illness: The patient is a 54 F who presents with a headache that began today. Patient states it became worse while she was at work tonight. Patient states she feels like she has a sharp pain in her head and a numbing sensation over the top of her head. Patient states nothing makes it better or worse. Patient admits to nausea but denies any vomiting. Patient also admits to a fluttering feeling in her chest. Patient admits to some shortness of breath. Patient denies any visual changes. Patient denies any scotoma. Patient denies any neck pain or back pain. Patient denies any fevers or chills. Physical Examination: Vital signs are stable. Patient is afebrile. Patient is in no acute distress. Oral mucosa is pink and moist. Neck is supple. Trachea is midline. There is no JVD noted. Heart was regular rate and rhythm. Lungs are clear and equal bilaterally. Abdomen is soft. Bowel sounds are normal. There is no tenderness. There is no rebound or guarding noted. Skin is warm dry. Cranial nerves II through XII are intact. There are no focal motor or sensory deficits noted. Extremities are intact. There is no calf tenderness or edema. Test Results: EKG showed a normal sinus rhythm with a rate of 70. There are no acute ST or T wave changes noted. This was unchanged compared to previous EKG dated 08/25/2019. CBC was normal. Comprehensive metabolic profile was essentially within normal limits. Creatinine was 1.26 but this was consistent with prior results. Troponin was normal. Emergency Department Course and Treatment: Patient was given IV fluids, Zofran, Reglan, and Benadryl. Patient states her headache had resolved on reevaluation. Patient was watching a movie on her phone on reevaluation. Patient was instructed to drink plenty of fluids. Patient was instructed to follow-up with her primary care physician in 5 to 7 days for further evaluation. Patient understood and was agreeable with the plan. All questions were answered. Disposition: Discharge home Impression: Headache This note was generated with [employer] dictation software. It may contain incorrect words, spelling, and punctuation that were not noted in review of the chart prior to signing ED Disposition - Plan for ED Patient: Disposition: Home or Assisted Living Diagnosis: Headache Instructions: HEADACHE, Unspecified Referrals: Martin Cantu DO [Primary Care Provider] - 5-7 Days
[2019-10-06 21:43] LABS: AST(SGOT) 16 U/L (15-37); Alanine Aminotransfer ALT/SGPT 21 U/L (13-56); Albumin, Serum 3.7 g/dL (3.2-5.0); Alkaline Phosphatase 79 U/L (45-117); Anion Gap 6 (5-15); BUN 30 mg/dL (7-18); BUN/Creat Ratio 23.8 RATIO (10-20); Calcium,Total 9.3 mg/dL (8.5-10.1); Chloride 112 mmol/L (98-107); Creatinine, Serum 1.26 mg/dL (0.55-1.02); EST Glomerular Filtration Rate 47 mL/min (>60); Est Glom Filt Rate - Afr Amer 57 mL/min (>60); Estimated Creatinine Clearance 51.49 ml/min; Globulin 3.7 g/dL (2.2-4.2); Glucose 96 mg/dL (74-106); Lipase 128 U/L (73-393); Potassium 3.7 mmol/L (3.5-5.1); Protein, Total 7.4 g/dL (6.4-8.2); Sodium Level 142 mmol/L (136-145)
== END 2019-10-06 22:31 | disposition home or self-care (01) ==
PROVIDERS: Emergency Provider Emergency Medicine; PCP Student in an Organized Health Care Education/Training Program
DX: R51 Headache (principal); I10 Essential (primary) hypertension; Z79.899 Other long term (current) drug therapy
CPT/HCPCS: 80053; 83690; 84484; 85025; 93005; 96361; 96374; 96375; 99284; J7030; A4216; J2405